=== PATIENT | female | born 1945 | race Caucasian/White ===

== ENCOUNTER 2017-02-26 14:59 | Emergency (ER) | payer OTHER ==
[~2017-02-26] VITALS: Ht 157.5 cm; Wt 36.7 kg
[~2017-02-26 14:59] MED LIST: ALBU.083IS; ALBU.083IS IH; ALBU8HFA2 INH; ALBU90OI; ALBU90OI INH; ALBU90OI61 INH; AMLO5; AMLO5 PO; ATOR10; Azopt10 ML; BEANO PO; BRIM.15SO BOTHEYES; BRIM.15SO RIGHTEYE; CEPH500 PO; CLON.1 PO; CREON DR 6,0001 EACH PO; CRESTOR; Cipro500 MG PO; DEXL60CA3 PO; DIAZ10 PO; DIAZ5; DIAZ5 PO; DICY20 PO; DOXE10 PO; DOXE25 PO; ERGO400 PO; EZET10 PO; FML FORTE 0.25%; HYDACE10B PO; HYDACE5 PO; HYDACE5325 PO; HYDACE7.5; HYDMOR2 PO; IRBE150 PO; MELO7.5 PO; Norco 5-325 Ta1 EACH PO; ONDA4 PO; OXYACE5T PO; POTCHL20ER PO; PROM25 PO; Percocet 5-3251 EACH PO; Prednisone20 MG PO; RISE5; RISE5 PO; ROSU5 PO; RXHYDMOR2 PO; TOCO400 PO; TRAV.004OP BOTHEYES; TRAV.004OP OD
[2017-02-26] MEDS ORDERED: BEANO (16:21)
[2017-02-26] MEDS ORDERED: ONDA4ODT MM (16:21)
[2017-02-26] MEDS ORDERED: CHOL10002 (16:21)
[2017-02-26] MEDS ORDERED: PHISOHEX (16:22)
[2017-02-26] MEDS ORDERED: HIBICLENS120 ML EXT (16:22)
== END 2017-02-26 16:48 | disposition home or self-care (01) ==
LOC: ER 14:59
DX: M25.511 Pain in right shoulder (principal); M25.551 Pain in right hip; M25.561 Pain in right knee; J45.909 Unspecified asthma, uncomplicated; I10 Essential (primary) hypertension; E78.00 Pure hypercholesterolemia, unspecified; Z88.0 Allergy status to penicillin; Z88.2 Allergy status to sulfonamides; Z88.1 Allergy status to other antibiotic agents; Z88.8 Allergy status to other drugs, medicaments and biological substances; Z91.012 Allergy to eggs; Z91.011 Allergy to milk products; Z79.899 Other long term (current) drug therapy; Z87.442 Personal history of urinary calculi; W19.XXXA Unspecified fall, initial encounter; Y92.512 Supermarket, store or market as the place of occurrence of the external cause
CPT/HCPCS: 73030; 73502; 73564; 99283

== ENCOUNTER 2017-05-07 16:40 | Emergency (ER) | payer OTHER ==
[~2017-05-07] VITALS: Ht 160 cm; Wt 37.6 kg
[~2017-05-07 16:40] MED LIST changes: +BEANO; +CHOL10002; +HIBICLENS120 ML EXT; +ONDA4ODT MM; +PHISOHEX
== END 2017-05-07 19:26 | disposition home or self-care (01) ==
LOC: ER 16:40
DX: S93.402A Sprain of unspecified ligament of left ankle, initial encounter (principal); J45.909 Unspecified asthma, uncomplicated; I10 Essential (primary) hypertension; E16.2 Hypoglycemia, unspecified; Z88.0 Allergy status to penicillin; Z88.1 Allergy status to other antibiotic agents; Z88.2 Allergy status to sulfonamides; Z88.6 Allergy status to analgesic agent; Z88.8 Allergy status to other drugs, medicaments and biological substances; Z79.899 Other long term (current) drug therapy; Z98.890 Other specified postprocedural states; W01.10XA Fall on same level from slipping, tripping and stumbling with subsequent striking against unspecified object, initial encounter
CPT/HCPCS: 73610; 99283

== ENCOUNTER 2018-08-25 13:04 | Emergency (ER) | payer OTHER ==
[~2018-08-25] VITALS: Ht 154.9 cm; Wt 40.8 kg
== END 2018-08-25 14:28 | disposition home or self-care (01) ==
LOC: ER 13:04
DX: S93.401A Sprain of unspecified ligament of right ankle, initial encounter (principal); X50.9XXA Other and unspecified overexertion or strenuous movements or postures, initial encounter; J45.909 Unspecified asthma, uncomplicated; I10 Essential (primary) hypertension; E78.5 Hyperlipidemia, unspecified
CPT/HCPCS: 73610; 99284-25

== ENCOUNTER 2019-02-03 18:38 | Emergency (ER) | payer OTHER ==
[~2019-02-03] VITALS: Ht 154.9 cm; Wt 31.8 kg
[2019-02-03 19:11] LABS: BASOPHILS ABSOLUTE AUTO 0.03 K/mm3 (0.00-0.23); BASOPHILS PERCENT AUTO 0 % (0-2); EOSINOPHILS ABSOLUTE AUTO 0.07 K/mm3 (0.00-0.68); EOSINOPHILS PERCENT AUTO 1 % (0-6); Hemoglobin 13.5 g/dL (11.5-16.0); IMMATURE GRAN ABSOLUTE AUTO 0.04 K/mm3 (0.00-0.10); IMMATURE GRAN PERCENT AUTO 0 % (0-1); LYMPHOCYTES ABSOLUTE AUTO 5.09 K/mm3 (0.84-5.20); LYMPHOCYTES PERCENT AUTO 35 % (21-46); MONOCYTES ABSOLUTE AUTO 1.42 K/mm3 (0.16-1.47); MONOCYTES PERCENT AUTO 10 % (4-13); Mean Corpuscular HGB 29.3 pg (26.0-34.0); Mean Corpuscular HGB Conc 31.4 g/dL (31.5-36.5); Mean Corpuscular Volume 93 fL (80-100); Mean Platelet Volume 10.4 fL (9.1-12.4); NEUTROPHILS PERCENT AUTO 54 % (41-73); Platelet Count 504 K/mm3 (150-400); RDW Coefficient Variation 14.3 % (11.7-14.2); RDW Standard Deviation 48.4 fL (35.1-46.3); Red Blood Cell Count 4.61 M/mm3 (3.80-5.20); White Blood Cell Count 14.45 K/mm3 (4.00-11.30)
[2019-02-03 19:27] LABS: Albumin/Globulin Ratio 0.7 (0.8-1.8); Bilirubin, Total 0.5 mg/dL (0.1-1.0); Calcium, Blood 9.6 mg/dL (8.5-10.1); Globulin, Blood 4.5 g/dL (2.2-4.0); Potassium, Blood 3.9 mmol/L (3.5-5.5); Total Protein, Blood 7.5 g/dL (6.4-8.2); Troponin I 0.033 ng/mL (0.000-0.040)
[2019-02-03] MEDS ORDERED: PANT20 PO (22:50)
== END 2019-02-04 00:01 | disposition home or self-care (01) ==
LOC: ER 18:38
PROVIDERS: Emergency Medicine
DX: K29.70 Gastritis, unspecified, without bleeding (principal); K21.9 Gastro-esophageal reflux disease without esophagitis; I10 Essential (primary) hypertension; J45.909 Unspecified asthma, uncomplicated; E78.5 Hyperlipidemia, unspecified; Z88.0 Allergy status to penicillin; Z88.2 Allergy status to sulfonamides; Z88.1 Allergy status to other antibiotic agents; Z88.8 Allergy status to other drugs, medicaments and biological substances; Z88.6 Allergy status to analgesic agent; Z88.5 Allergy status to narcotic agent; Z79.899 Other long term (current) drug therapy; Z79.51 Long term (current) use of inhaled steroids
CPT/HCPCS: 71045; 80053; 83690; 84484; 85025; 93005; 93010; 99284-25

== ENCOUNTER → 2019-03-21 | Outpatient (CLI) | payer OTHER ==
[~2019-03-21] MED LIST changes: +PANT20 PO
== END | disposition home or self-care (01) ==
LOC: LAB 09:00 → LAB SHORT 09:00 → LAB FUT 03-11 13:40
PROVIDERS: Internal Medicine
DX: R79.89 Other specified abnormal findings of blood chemistry (principal)
CPT/HCPCS: 81050

== ENCOUNTER 2020-03-03 17:00 | Inpatient (IN) | payer OTHER ==
[~2020-03-03] VITALS: Ht 160 cm; Wt 35.0 kg
[~2020-03-03 17:00] MED LIST changes: -ALBU90OI61 INH; +Avapro150 MG; +Azopt10 ML RIGHTEYE; -BEANO; -CHOL10002; +OLOPATADINE HCL5 ML BOTHEYES; +RHOPRESSA2.5 ML RIGHTEYE; +Roxicodone5 MG PO
[2020-03-03 17:34] LABS: BASOPHILS ABSOLUTE AUTO 0.02 K/mm3 (0.00-0.23); BASOPHILS PERCENT AUTO 0 % (0-2); EOSINOPHILS ABSOLUTE AUTO 0.05 K/mm3 (0.00-0.68); EOSINOPHILS PERCENT AUTO 0 % (0-6); Hematocrit 43.6 % (33.0-51.0); Hemoglobin 13.8 g/dL (11.5-16.0); IMMATURE GRAN ABSOLUTE AUTO 0.04 K/mm3 (0.00-0.10); IMMATURE GRAN PERCENT AUTO 0 % (0-1); LYMPHOCYTES ABSOLUTE AUTO 4.17 K/mm3 (0.84-5.20); LYMPHOCYTES PERCENT AUTO 31 % (21-46); MONOCYTES ABSOLUTE AUTO 0.93 K/mm3 (0.16-1.47); MONOCYTES PERCENT AUTO 7 % (4-13); Mean Corpuscular HGB 29.9 pg (26.0-34.0); Mean Corpuscular HGB Conc 31.7 g/dL (31.5-36.5); Mean Corpuscular Volume 94 fL (80-100); Mean Platelet Volume 10.2 fL (9.1-12.4); NEUTROPHILS ABSOLUTE AUTO 8.12 K/mm3 (1.96-9.15); NEUTROPHILS PERCENT AUTO 61 % (41-73); Platelet Count 328 K/mm3 (150-400); RDW Coefficient Variation 15.9 % (11.7-14.2); RDW Standard Deviation 54.9 fL (35.1-46.3); Red Blood Cell Count 4.62 M/mm3 (3.80-5.20); White Blood Cell Count 13.33 K/mm3 (4.00-11.30)
[2020-03-03 17:52] LABS: Albumin, Blood 3.3 g/dL (3.4-5.0); Albumin/Globulin Ratio 0.8 (0.8-1.8); Bilirubin, Total 0.3 mg/dL (0.1-1.0); Bun/Creatinine Ratio 22.5 (12.0-20.0); Calcium, Blood 9.5 mg/dL (8.5-10.1); Creatinine, Blood 1.11 mg/dL (0.40-1.00); Globulin, Blood 3.9 g/dL (2.2-4.0); Potassium, Blood 3.3 mmol/L (3.5-5.5); Total Protein, Blood 7.2 g/dL (6.4-8.2)
[2020-03-03] MEDS ORDERED: Felodipine ER2.5 MG PO (19:17)
[2020-03-03] MEDS ORDERED: DEXL60CA3 PO (19:18)
[2020-03-03] MEDS ORDERED: Bentyl10 MG PO (19:18)
[2020-03-03] MEDS ORDERED: HYDACE10B PO (19:20)
[2020-03-03] MEDS ORDERED: VALSARTAN160 MG PO (19:22)
[2020-03-03] MEDS ORDERED: CREON DR 6,0001 EACH PO (19:22)
[2020-03-03] MEDS ORDERED: ALBU90OI61 INH (19:45)
[2020-03-03] MEDS ORDERED: BEANO PO (19:46)
[2020-03-03] MEDS ORDERED: VITAMIN D325 MC3 PO (19:46)
[2020-03-03 20:23] LABS: Source, Urine Catheter
[2020-03-03 20:34] LABS: Appearance, Urine Clear (Clear); Bilirubin, Urine Neg (Neg); Blood, Urine Neg (Neg); Color, Urine Yellow (P-Yellow); Glucose Qualitative, Urine Neg (Neg); Ketones, Urine Neg (Neg); Leukocyte Esterase, Urine Neg (Neg); Nitrite, Urine Neg (Neg); Protein, Urine 2+ (Neg); Specific Gravity, Urine 1.015 (1.003-1.022); Urobilinogen, Urine NORM (Normal)
[2020-03-03 20:42] LABS: Red Blood Cells, Urine Not Seen /hpf (0-2); Squamous Epithelial Cells Rare /hpf (Few); White Blood Cells, Urine 0-2 /hpf (0-5)
[2020-03-03 20:43] LABS: Bacteria Few /hpf
[2020-03-04 04:44] LABS: Very Low Density Lipoprot Chol 27 mg/dL (6-32)
[2020-03-04 04:45] LABS: Anion Gap 7 mmol/L (6-16); Blood Urea Nitrogen 22 mg/dL (8-24); Bun/Creatinine Ratio 19.5 (12.0-20.0); CHOL/HDL RATIO 3.5; CO2, Blood 23 mmol/L (21-32); Chloride, Blood 112 mmol/L (98-108); Cholesterol 273 mg/dL (50-200); Creatinine, Blood 1.13 mg/dL (0.40-1.00); Glomerular Filtration Rate 50 (60-); Glucose, Blood 93 mg/dL (70-99); HDL Cholesterol 79 mg/dL (>39); LDL/HDL RATIO 2.1; Low Density Lipoprotein Chol 167 mg/dL (0-110); Potassium, Blood 4.2 mmol/L (3.5-5.5); Sodium, Blood 142 mmol/L (136-145); Triglycerides 135 mg/dL (30-160)
--- NOTE | 2020-03-04 05:29 | NUR ---
SHIFT SUMMARY ADMITTED AROUND 11PM. ALERT AND ORIENTED - ABLE TO MAKE NEEDS KNOWN. SATS >90% ON ROOM AIR. TELE NSR. 1 PERSON ASSIST TO BATHROOM - USES WALKER NEEDED. BP ELEVATED - HYDRALAZINE GIVEN X1. PAIN X2. HER TOES ARE PRETTY BRUISED AND SCUFFED UP FROM CANS DROPPING ON THEM. PT C/O OF PAIN IN TOES MORESO THAN HER ABDOMEN. NAUSEA MEDS GIVEN X1. VSS. CALL LIGHT WITHIN REACH, BED IN LOWEST POSITION. WILL CONTINUE TO MONITOR.
--- NOTE | 2020-03-04 18:28 | NUR ---
SHIFT SUMMARY: NO ACUTE CHANGES T/OUT SHIFT. PT CONTINUES A&OX4, RESP EVEN AND UNLABORED, AMBULATES TO RESTROOM USING FWW AND SBA. PT DENIES N/V T/OUT SHIFT, DOES C/O PAIN TO BILATERAL TOES THAT SHE SAID SHE DROPPED FROZEN FOOD AND CANNED GOODS ON. PT MEDICATED PER EMAR FOR PAIN. AT THIS TIME PT IS RESTING QUIETLY IN BED WITH TV ON. WILL CONTINUE TO MONITOR AND TREAT ACCORDINGLY UNTIL CHANGE OF SHIFT.
[2020-03-05 04:01] LABS: BASOPHILS ABSOLUTE AUTO 0.03 K/mm3 (0.00-0.23); BASOPHILS PERCENT AUTO 0 % (0-2); EOSINOPHILS ABSOLUTE AUTO 0.08 K/mm3 (0.00-0.68); EOSINOPHILS PERCENT AUTO 1 % (0-6); Hematocrit 39.5 % (33.0-51.0); Hemoglobin 12.7 g/dL (11.5-16.0); IMMATURE GRAN ABSOLUTE AUTO 0.06 K/mm3 (0.00-0.10); IMMATURE GRAN PERCENT AUTO 1 % (0-1); LYMPHOCYTES ABSOLUTE AUTO 3.46 K/mm3 (0.84-5.20); LYMPHOCYTES PERCENT AUTO 42 % (21-46); MONOCYTES ABSOLUTE AUTO 0.75 K/mm3 (0.16-1.47); MONOCYTES PERCENT AUTO 9 % (4-13); Mean Corpuscular HGB Conc 32.2 g/dL (31.5-36.5); Mean Corpuscular Volume 90 fL (80-100); NEUTROPHILS PERCENT AUTO 47 % (41-73); RDW Coefficient Variation 16.1 % (11.7-14.2); RDW Standard Deviation 53.8 fL (35.1-46.3); Red Blood Cell Count 4.38 M/mm3 (3.80-5.20); White Blood Cell Count 8.28 K/mm3 (4.00-11.30)
[2020-03-05 04:03] LABS: Mean Platelet Volume 10.4 fL (9.1-12.4); Platelet Count 114 K/mm3 (150-400)
[2020-03-05 04:15] LABS: Albumin, Blood 2.6 g/dL (3.4-5.0); Albumin/Globulin Ratio 0.7 (0.8-1.8); Bilirubin, Total 0.4 mg/dL (0.1-1.0); Bun/Creatinine Ratio 14.7 (12.0-20.0); Calcium, Blood 8.4 mg/dL (8.5-10.1); Creatinine, Blood 1.16 mg/dL (0.40-1.00); Globulin, Blood 3.6 g/dL (2.2-4.0); Potassium, Blood 3.9 mmol/L (3.5-5.5); Total Protein, Blood 6.2 g/dL (6.4-8.2)
--- NOTE | 2020-03-05 05:05 | NUR ---
SHIFT SUMMARY PATIENT IS A&OX4, CALLS APPROPRIATELY. PATIENT ABLE TO REPOSITON SELF IN BED, 1 PERSON ASSIST TO BATHROOM. MEDICATED FOR TOE PAIN, SEE EMAR. MEDICATED FOR HIGH BP, SEE EMAR, VSS OTHERWISE. 02 SATS >95% ON RA. CALL LIGHT IN REACH.
--- NOTE | 2020-03-05 12:01 | NUR ---
Spiritual care visit conducted. Patient explains about her medical history, her current issues and the plan of care moving forward. Patient then shares about the tragic events and situations she has gone through in life. I highlight her ability to overcome and continue to have a joyful demeanor. 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 Her art work is also a coping strategy for her. Patient talks about her Rastafarian sole and how she finds strength in her prayers. I bring her a Rastafarian prayer and devotional book and later contact Father Maximus to request that he visit patient. I provide therapeutic listening and prayer. Patient responds well and shows signs of an elevated mood. I will continue to remain available to patient and family.
--- NOTE | 2020-03-05 16:01 | NUR ---
NO ACUTE CHANGES T/OUT DAY SHIFT. PT CONTINUES A&OX4, RESP EVEN AND UNLABORED, SR ON MONITOR. DR CHAN IN TO SEE PT TODAY, ORDERED CONSULTATION WITH DR SCHWARTZ BEFORE PURSUING SURGERY, CONSULTATION HAS BEEN CALLED IN. PT CONTINUES INDEPENDENT IN ROOM, SBA WITH FWW TO RESTROOM. PALLIATIVE CARE IS AWARE OF CONSULTATION ORDER. REPORT HAS BEEN GIVEN TO MINDY JOSHI IN MEDICAL DEPT TO RECEIVE PT.
--- NOTE | 2020-03-06 05:08 | NUR ---
FREIGHT CAR REPAIRER SUMMARY A/OX4, PLEASANT AND COOPERATIVE WITH CARE. C/O PAIN IN BILATERAL FEET, MEDICATED PER EMAR. UP TO BATHROOM WITH 1 ASSIST AND FWW. CURRENTLY RUNNING NS AT 75. NPO AT MIDNIGHT FOR PROCEDURE WITH DR. SCHWARTZ THIS AM. NO ACUTE CHANGES AT THIS TIME. BED IN LOWEST POSITION WITH CALL LIGHT IN REACH. WILL CONTINUE TO MONITOR AND REPORT TO ONCOMING RN.
[2020-03-06 10:15] LABS: International Normalized Ratio 1.04; Prothrombin Time Results 11.1 Sec (9.7-11.5)
[2020-03-06 10:24] LABS: Influenza A, PCR Negative (NEGATIVE); Influenza B, PCR Negative (NEGATIVE); Resp Syncytial Virus, PCR Negative (NEGATIVE); SARS-Cov-2 (COVID-19) PCR, MMC Negative (NEGATIVE)
--- NOTE | 2020-03-06 13:47 | NUR ---
Met pt in bed relaxed she reports doing much better ,pt. is out of P.C.U and is now medical floor encouraged pt. and offered prayers.
--- NOTE | 2020-03-07 04:49 | NUR ---
MARINE EQUIPMENT PRESERVATION INSPECTOR SUMMARY PT A&OX4, ABLE TO MAKE NEEDS KNOWN, PLEASANT AND COOPERATIVE TO CARE. PT MEDICATED FOR ROBB FOOT PAIN PER APR. PT UP TO BATHROOM WITH 1P ASSIST WITH FWW. NO C/O CP, SOB, OR N&V. PT NPO SINCE MIDNIGHT D/T SCHED PROCEDURE TODAY. PT CALM AND RESTED IN BED T/O SHIFT. BED AT LOWEST POSITION, CALL LIGHT WITHIN REACH.
--- NOTE | 2020-03-07 09:46 | NUR ---
PT ARRIVED TO ICU 2 FROM SYSTEMS SOFTWARE ENGINEER AT 0830. PT HAD REVASCULARIZATION TO L FOOT. R GROIN ACCESS SITE WITH FAILED ANGIOSEAL. UPON ARRIVAL TO ROOM THERE WAS BLOOD SEEPING OUT OF DRESSING. SYSTEMS SOFTWARE ENGINEER STAFF HELD PRESSURE FOR ANOTHER 10MINS. HORTENCIA DRESSING WAS PLACED. ONLY SMALL AMOUNT OF BLOOD ON DRESSING NOW. THERE IS GREEN/BLUE BRUISING AROUND SITE FROM PRESSURE BEING HELD. PT IS LAYING FLAT WITHOUT FLEXION OF NECK OR LEGS. FENTANYL WAS GIVEN WHEN PT INITIALLY ARRIVED DUE TO PAIN IN TOES BILAT. R FOOT HAS BLACK AND YELLOW DISCOLRATION TO 2ND TOE. 3RD TOE HAS PURPLE DISCOLORATION. ON L FOOT BIG TOE IS PURPLE, 3RD TOE IS BLACK ON UNDERSIDE, AND 4TH TOE IS PURPLE. SEE PHOTOS TAKEN POST SYSTEMS SOFTWARE ENGINEER. PULSES PALPABLE TO BILAT DORSALIS AND POSTERIOR TIBIALS. HYDRALAZINE GIVEN FOR SBP IN 180'S WITH GOOD RESULTS.
--- NOTE | 2020-03-07 13:34 | NUR ---
PT TAKEN TO SURGERY FOR TOE AMPUTATIONS. PATTERN FINISHER X2 CAME AND GOT PT WITH MCKENNA. R FEMORAL ACCESS SITE IS STABLE WITH HORTENCIA DRESSING INTACT. NO NEW BLEEDING FROM SITE. PT WILL BE SURGICAL STATUS AFTER SURGERY. NO SIGN OF DISTRESS.
--- NOTE | 2020-03-07 13:50 | NUR ---
Tariq Paws warming gown applied. History, Chart, Medications and Allergies reviewed before start of procedure.Lungs clear T/O to Auscultation. Patient confirms NPO status and agrees with scheduled surgery. ALL BELONINGS BROUGHT WITH PATIENT FROM ICU 2 DUE TO PATIENT BECOMING SURGICAL FLOOR STATUS. PACU AWARE. RIGHT GROIN SITE WITH TEGADERM IN PLACE. SITE WITHOUT BLEEDING OR SWELLING. NO PAS DUE TO BILAT TOE AMPUTATIONS. REPORT FROM JOANN GUILLEN ICU.
--- NOTE | 2020-03-07 15:03 | NUR ---
ARRIVED INTO PACU RECIEVED REPORT VSS. ORAL AIRWAY IN PLACE SAT 98% ROOM AIR
--- NOTE | 2020-03-07 15:47 | NUR ---
ARRIVAL TO UNIT ALERT & ORIENTED BUT DROWSY. DENIES PAIN. VSS. KIMBERLYN WRAP ON BILAT FEET; CDI. DENIES NEEDS AND JUST WISHES TO SLEEP.
--- NOTE | 2020-03-08 06:15 | NUR ---
SHIFT SUMMARY POD#1. AAOX4. PT REPORTING DISCOMFORT AT TOLERABLE LEVEL T/O NIGHT, DENIES NEED FOR PAIN/NAUSEA MEDS. DRESSINGS TO BLE C/D/I. PT REPORTING HX NEUROPATHY BLE, NO ACUTE CHANGE FROM BASELINE. SIPS FLUIDS T/O NIGHT, IVF PER BASELINE. GOOD URINE OUTPUT. NO ACUTE CHANGES OVER NIGHT. CURRENTLY PT RESTING IN BED WITH CALL LIGHT IN REACH.
[2020-03-08] MEDS ORDERED: CLIN150 PO (12:46)
--- NOTE | 2020-03-08 14:00 | NUR ---
discharge PT LEFT VIA WHEELCHAIR AT APPROX 1345. PT LEFT WITH FRIEND WHO WILL BE STAYING WITH HER HELPING TO PROVIDE CARE. DISCHARGE INSTRUCTIONS GONE OVER WITH PATIENT AND FRIEND. PT STATES SHE HAS A WALKER AT HOME. EDUCATED PATIENT ON IMPORTANCE OF USING WALKER AND USING HER BOOTS WHILE AMBULATING AND MOVING AROUND THE HOUSE. PT WAS ABLE TO WALK MULTIPLE TIMES DURING SHIFT WITH NO SIGNS OF WEAKNESS, SHE DENIED PAIN DURING SHIFT. TOLERATED PO WELL. PT HOME MED SENT HOME WITH HER. IV REMOVED.
== END 2020-03-08 13:44 | disposition home or self-care (01) | DRG 252 ==
LOC: ER 17:00 → SURS 22:23 → PCU 22:23 → MEDS 22:23 → PCU 22:30 → MEDS 03-05 16:27 → ICUE 03-07 08:16 → SURS 03-07 14:30
PROVIDERS: Internal Medicine; Physician Assistant; Podiatrist Foot & Ankle Surgery; Radiology Diagnostic Radiology; ADMIT Internal Medicine
PROC: 0Y6U0Z1 Detachment at Left 3rd Toe, High, Open Approach (ICD-10-PCS; 2020-03-07)
PROC: 0Y6R0Z1 Detachment at Right 2nd Toe, High, Open Approach (ICD-10-PCS; principal; 2020-03-07 13:30)
PROC: 047Q3ZZ Dilation of Left Anterior Tibial Artery, Percutaneous Approach (ICD-10-PCS; 2020-03-08)
PROC: B41DYZZ Fluoroscopy of Aorta and Bilateral Lower Extremity Arteries using Other Contrast (ICD-10-PCS; 2020-03-08)
DX: I73.89 Other specified peripheral vascular diseases (principal); K85.90 Acute pancreatitis without necrosis or infection, unspecified; R65.10 Systemic inflammatory response syndrome (SIRS) of non-infectious origin without acute organ dysfunction; I96 Gangrene, not elsewhere classified; M86.171 Other acute osteomyelitis, right ankle and foot; S90.425A Blister (nonthermal), left lesser toe(s), initial encounter; I10 Essential (primary) hypertension; E78.5 Hyperlipidemia, unspecified; E87.6 Hypokalemia; J45.909 Unspecified asthma, uncomplicated; I77.89 Other specified disorders of arteries and arterioles
CPT/HCPCS: 0241U; 36415; 37228; 73630; 74176; 75625; 75716; 75774; 80048; 80053; 80061; 81001; 82947; 83690; 84484; 85025; 85610; 88305; 88311; 93005; 93010; 94760; 96361; 96374; 99152; 99153; 99285-25; A9270; C1725; C1760; C1769; C1887; C1894; J0360; J1100; J1644; J2250; J2370; J2405; J2704; J3010; J7030; J7050; J7120; Q9967

== ENCOUNTER 2021-05-10 18:04 | Emergency (ER) | payer OTHER ==
[~2021-05-10] VITALS: Ht 157.5 cm; Wt 32.1 kg
[~2021-05-10 18:04] MED LIST changes: +ALBU90OI61 INH; +Bentyl10 MG PO; +CLIN150 PO; +Felodipine ER2.5 MG PO; +LIDO700A20 TOP; +VALSARTAN160 MG PO; +VITAMIN D325 MC3 PO
[2021-05-10] MEDS ORDERED: Voltaren100 GM TOP (22:47)
== END 2021-05-10 23:15 | disposition home or self-care (01) ==
LOC: ER 18:04
DX: M79.671 Pain in right foot (principal); J45.909 Unspecified asthma, uncomplicated; I10 Essential (primary) hypertension; E78.00 Pure hypercholesterolemia, unspecified; Z89.421 Acquired absence of other right toe(s); Z88.0 Allergy status to penicillin; Z88.2 Allergy status to sulfonamides; Z88.1 Allergy status to other antibiotic agents; Z88.8 Allergy status to other drugs, medicaments and biological substances; Z88.6 Allergy status to analgesic agent; Z79.899 Other long term (current) drug therapy
CPT/HCPCS: 93926; 99284-25

== ENCOUNTER 2021-05-20 11:54 | Inpatient (IN) | payer OTHER ==
[~2021-05-20] VITALS: Ht 152.4 cm; Wt 26.9 kg
[~2021-05-20 11:54] MED LIST changes: +CLON.2 PO; +Voltaren100 GM TOP
[2021-05-20 15:08] LABS: BASOPHILS ABSOLUTE AUTO 0.02 K/mm3 (0.00-0.23); BASOPHILS PERCENT AUTO 0 % (0-2); EOSINOPHILS ABSOLUTE AUTO 0.01 K/mm3 (0.00-0.68); EOSINOPHILS PERCENT AUTO 0 % (0-6); Hematocrit 38.6 % (33.0-51.0); Hemoglobin 12.3 g/dL (11.5-16.0); IMMATURE GRAN ABSOLUTE AUTO 0.04 K/mm3 (0.00-0.10); IMMATURE GRAN PERCENT AUTO 0 % (0-1); LYMPHOCYTES ABSOLUTE AUTO 1.18 K/mm3 (0.84-5.20); LYMPHOCYTES PERCENT AUTO 11 % (21-46); MONOCYTES ABSOLUTE AUTO 0.74 K/mm3 (0.16-1.47); MONOCYTES PERCENT AUTO 7 % (4-13); Mean Corpuscular HGB 29.9 pg (26.0-34.0); Mean Corpuscular HGB Conc 31.9 g/dL (31.5-36.5); Mean Corpuscular Volume 94 fL (80-100); NEUTROPHILS ABSOLUTE AUTO 8.53 K/mm3 (1.96-9.15); NEUTROPHILS PERCENT AUTO 81 % (41-73); Platelet Count 97 K/mm3 (150-400); RDW Coefficient Variation 15.1 % (11.7-14.2); RDW Standard Deviation 51.8 fL (35.1-46.3); Red Blood Cell Count 4.11 M/mm3 (3.80-5.20); White Blood Cell Count 10.52 K/mm3 (4.00-11.30)
[2021-05-20 15:25] LABS: Albumin, Blood 3.4 g/dL (3.4-5.0); Albumin/Globulin Ratio 0.8 (0.8-1.8); Bilirubin, Total 1.2 mg/dL (0.1-1.0); Bun/Creatinine Ratio 37.9 (12.0-20.0); Calcium, Blood 9.8 mg/dL (8.5-10.1); Creatinine, Blood 1.69 mg/dL (0.40-1.00); Potassium, Blood 4.4 mmol/L (3.5-5.5); Total Protein, Blood 7.4 g/dL (6.4-8.2)
[2021-05-20 17:53] LABS: Base Excess Venous -3.8 mmol/L; PCO2 Venous 29.9 mmHg (38-42); PO2 Venous 120 mmHg (38-42); pH Blood Venous 7.44 (7.34-7.37)
--- NOTE | 2021-05-20 19:32 | NUR ---
PATIENT ARRIVAL: PATIENT ARRIVAL TO PCU DURING SHIFT CHANGE. THIS RN TRANSFERRED PATIENT OVER TO PCU BED. VITAL SIGNS OBTAINED. TELE SHOWING AFIB WITH HR 130-140'S. CARDIZEM DRIP INFUSING AT 5MG/HR. ATTENDS CHANGE, PATIENT INCONTINENT OF URINE. VERY FRAGILE AND COOL TO THE TOUCH. WARM BLANKETS PROVIDED. TOES BLACK/BLUE. PICTURES TAKEN. FINGERS SLIGHTLY BLUE IN COLOR HARD TO OBTAIN PULSE OX. READING 91% AT TIME OF VITALS. PATIENT DENIES PAINS. UPON ENTERING VITAL SIGNS AND STARTING ADMIT, MARKET RISK MANAGER RN IN ROOM FOR REPORT. REPORT HANDED OFF TO MARTÍNEZ GUILLEN.
[2021-05-20 19:41] LABS: Anti-Xa UFH, PHA Monitoring <0.10 IU/mL; International Normalized Ratio 0.95
--- NOTE | 2021-05-20 22:40 | NUR ---
ASSUMED PT CARE AT 1900, PT JUST ARRIVED ON UNIT. PT SITTING IN BED, ORIENTED TO SELF. HR OBSERVED TO BE IN A-FIB WITH RVR ON TELEMETRY. HR AND BP ELEVATED, SEE SAVED VITAL SIGNS IN CHART. PT PULSE OXEMETRY DIFFICULT TO OBTAIN DUE TO POOR VASCULARIZATION, FINGER TIPS BLUE TINGED. PT DOES NOT APPEAR TO BE SOB OR HAVE ANY AIR HUNGER, NO COMPLAINTS OF DIFFICUTLY BREATHING. LIPS PINK. DILTIAZEM DRIP RUNNING AT 5 MG/HR AT SHIFT CHANGE. RATE INCREASED PER PROTOCOL DUE TO LACK OF IMPROVEMENT OF HR. MAXIMUM RATE REACHED, HOSPITALIST DATABASE SOFTWARE TECHNICIAN INFORMED BY JARON CHARGE NURSE. PT RATE TRANDING DOWNWARD INTO 80'S BEFORED DILTTIAZEM DRIP NEEDING TO BE INCREASED FURHTER, PER DOCTORS INSTRUCTIONS. PT HR CONVERTED TO SR AT APPROXIMATELY 2119. DILTIZAEM DRIP STOPPED. PT HR HAS REMAINED IN SR UNTIL NOW. HEPRIN DRIP INFUSING ORDERED.
[2021-05-21 02:11] LABS: BASOPHILS ABSOLUTE AUTO 0.01 K/mm3 (0.00-0.23); BASOPHILS PERCENT AUTO 0 % (0-2); EOSINOPHILS ABSOLUTE AUTO 0.02 K/mm3 (0.00-0.68); EOSINOPHILS PERCENT AUTO 0 % (0-6); Hematocrit 35.2 % (33.0-51.0); Hemoglobin 11.2 g/dL (11.5-16.0); IMMATURE GRAN ABSOLUTE AUTO 0.04 K/mm3 (0.00-0.10); IMMATURE GRAN PERCENT AUTO 0 % (0-1); LYMPHOCYTES ABSOLUTE AUTO 1.24 K/mm3 (0.84-5.20); LYMPHOCYTES PERCENT AUTO 12 % (21-46); MONOCYTES ABSOLUTE AUTO 0.53 K/mm3 (0.16-1.47); MONOCYTES PERCENT AUTO 5 % (4-13); Mean Corpuscular HGB 30.4 pg (26.0-34.0); Mean Corpuscular HGB Conc 31.8 g/dL (31.5-36.5); Mean Corpuscular Volume 95 fL (80-100); Mean Platelet Volume 11.7 fL (9.1-12.4); NEUTROPHILS ABSOLUTE AUTO 8.25 K/mm3 (1.96-9.15); NEUTROPHILS PERCENT AUTO 82 % (41-73); Platelet Count 102 K/mm3 (150-400); RDW Coefficient Variation 15.7 % (11.7-14.2); RDW Standard Deviation 54.4 fL (35.1-46.3); Red Blood Cell Count 3.69 M/mm3 (3.80-5.20); White Blood Cell Count 10.09 K/mm3 (4.00-11.30)
[2021-05-21 02:31] LABS: Albumin/Globulin Ratio 0.8 (0.8-1.8); Bilirubin, Total 0.6 mg/dL (0.1-1.0); Bun/Creatinine Ratio 37.7 (12.0-20.0); Calcium, Blood 8.3 mg/dL (8.5-10.1); Creatinine, Blood 1.75 mg/dL (0.40-1.00); Globulin, Blood 3.9 g/dL (2.2-4.0); Magnesium, Blood 2.1 mg/dL (1.6-2.4); Potassium, Blood 3.9 mmol/L (3.5-5.5); Total Protein, Blood 6.9 g/dL (6.4-8.2)
--- NOTE | 2021-05-21 04:43 | NUR ---
PT HR HAS REMAINED IN SR IN 70-80'S. FINGERS AND TOES ARE NOW PALE PINK EXCCEPT 4TH TOE ON RIGHT FOOT IS STILL PURPLE/BLACK. O2 SATS HIGH 90'S ON RA. BP HAS REMAINED STABLE. SAFETY MEASURES IN PLACE.
--- NOTE | 2021-05-21 08:00 | NUR ---
INITIAL ASSESSMENT: Patient is resting with her eyes closed, she awakens easily with verbal stimuli. She is oriented to self, place, and following directions. She thinks it is May 18. She reports 8/10 BLE pain, she states she normally takes [place] at home for pain. HRR, SR in the 70s-80s. LS Coarse in the upper lobes, biox is 100% on RA. BT+. Patient has history of Raynauds. On her left hand her fingers at the tips are dusky with a 4 sec cap refill. Both feet the toes are a dark purple with very slow cap refill. On the bottom of the second toe on the right foot it is black. Patient denies N/T. VSS. AM meds given with a sip of water. Patient repositioned in bed so she can eat breakfast. She denies other needs at this time. WCTM.
--- NOTE | 2021-05-21 12:00 | NUR ---
UPDATE: ASSESSMENT UNCHANGED. PT HAS BEEN ABLE TO GET OOB WITH THERAPY. VSS. THE PATIENT IS RESTING COMFORTABLY AT THIS TIME. SHE DENIES NEEDS AT THIS TIME. CALL ENA IN REACH, SAV.
--- NOTE | 2021-05-21 15:15 | NUR ---
Call to Dr. Hunt regarding pt's pain. Pain medication requested; Dr. Hunt said that she will do the home medication reconciliation and put new orders in.
--- NOTE | 2021-05-21 16:30 | NUR ---
UPDATE: ASSESSMENT UNCHANGED. VSS. PT IS C/O PAIN IN HER BACK AND LEGS, CALL PLACED TO DR. CHEATHAM BY CORNELIO GUILLEN-SEE NEW ORDERS. PT WAS MEDICATED WITH NORCO. PATIENT DENIES OTHER NEEDS AT THIS TIME. CALL LIGHT IN REACH, WILL CONTINUE TO MONITOR.
--- NOTE | 2021-05-21 18:00 | NUR ---
Update: This RN went in to start a powerglide on the patient due to difficulty with labs draws. I noticed the patient was having difficulty breathing, she was tachypnec with a respiratory rate of 45. She was pale and diaphoretic. I noticed some new mottling to her knees and the back of her thighs. Her lips has a purplish hue to them. This RN was not able to get a good oxygen saturation on the patient due to her Raynauds/poor circulation. I was getting and intermediate reading of her oxygen saturations it was down into the low 80s, pt was placed on 4l of oxygen in her mouth. A call was placed to Dr. Hunt to see if she can come to see the patient. Pt is hypertensive 170s/101. PTs LS now with new crackles and exp wheezing. Pt appears more lethargic and is c/o abd pain. This RN was able to get a powerglide placed and stat labs sent. Tova is at the bedside to see the patient-see new orders. RT at bedside to perform stat ABG. Neighbor at the bedside, update given with patient consent. Neighbor states her and her sister have been trying to get POA for the patient. Patient remains her own decision maker and confirms full code when asked.
[2021-05-21 18:35] LABS: PCO2 Arterial 42.2 mmHg (35-45); PO2 Arterial 50.3 mmHg (80-100)
[2021-05-21 18:50] LABS: Hematocrit 35.1 % (33.0-51.0); Mean Corpuscular HGB 30.2 pg (26.0-34.0); Mean Corpuscular HGB Conc 31.3 g/dL (31.5-36.5); Mean Corpuscular Volume 96 fL (80-100); Platelet Count 108 K/mm3 (150-400); RDW Coefficient Variation 15.9 % (11.7-14.2); RDW Standard Deviation 57.1 fL (35.1-46.3); Red Blood Cell Count 3.64 M/mm3 (3.80-5.20); White Blood Cell Count 15.31 K/mm3 (4.00-11.30)
--- NOTE | 2021-05-21 19:00 | NUR ---
Update: ICU transfer orders were placed. The patient was placed on C-Pap prior to transfer. See chart for all stat labs. Pt was transferred to ICU 07, Report given to Roxanne HERRERA RN. Dr. Latricia ROSE was at the bedside-he will give an update to Dr. Ayala who has seen this patient in the past.
[2021-05-21 19:16] LABS: Albumin, Blood 2.7 g/dL (3.4-5.0); Anion Gap 10 mmol/L (6-16); Blood Urea Nitrogen 63 mg/dL (8-24); Bun/Creatinine Ratio 37.5 (12.0-20.0); CO2, Blood 17 mmol/L (21-32); Calcium, Blood 8.3 mg/dL (8.5-10.1); Chloride, Blood 115 mmol/L (98-108); Creatinine, Blood 1.68 mg/dL (0.40-1.00); Glomerular Filtration Rate 29 (60-); Glucose, Blood 293 mg/dL (70-99); Phosphorus, Blood 4.6 mg/dL (2.5-4.9); Potassium, Blood 4.9 mmol/L (3.5-5.5); Sodium, Blood 142 mmol/L (136-145)
--- NOTE | 2021-05-21 19:33 | NUR ---
ARRIVAL TO ICU PT TRANSFERRED FROM PCU AT THIS TIME. BEDSIDE REPORT RECEIVED FROM ROLANDO GUILLEN. PT ON CPAP 01/23. HEPARIN INFUSING AT 19UNITS/KG/HR WITH WEIGHT OF 27KG. PT WAKENS TO VERBAL STIMULI AND ANSWERS QUESTIONS. SHE IS HYPERTENSIVE AT THIS TIME. SEE SHIFT ASSESSMENT.
--- NOTE | 2021-05-21 20:30 | NUR ---
PROVIDER VISIT DR SCHWARTZ AT BEDSIDE FOR EVAL. POST-TIBIAL PULSES AUDIBLE WITH DOPPLER. VERY FAINT PEDAL PULSES WITH DOPPLER. TOES ARE DUSKY, COOL TO TOUCH. PT HAS SENSATION IN BOTH FEET AND TOES. C/O DISCOMFORT IN TOES. PLAN FOR DR SCHWARTZ TO TAKE PT TOMORROW AFTERNOON FOR PROCEDURE.
[2021-05-21 21:24] LABS: Source, Urine Foley catheter
[2021-05-21 21:31] LABS: Bilirubin, Urine Neg (Neg); Blood, Urine 4+ (Neg); Glucose Qualitative, Urine 2+ (Neg); Ketones, Urine Neg (Neg); Leukocyte Esterase, Urine Neg (Neg); Nitrite, Urine Neg (Neg); Protein, Urine 3+ (Neg); Specific Gravity, Urine 1.025 (1.003-1.022); Urobilinogen, Urine NORM (Normal)
[2021-05-21 21:46] LABS: Appearance, Urine Hazy (Clear); Color, Urine Yellow (P-Yellow)
[2021-05-21 21:47] LABS: Amorphous Mod (0-Heavy); Bacteria Few /hpf; Mucus Light (0-Heavy); Squamous Epithelial Cells Few /hpf (Few); White Blood Cells, Urine Rare /hpf (0-5)
--- NOTE | 2021-05-22 02:49 | NUR ---
UPDATE- HYPERTENSION PT REMAINS HYPERTENSIVE DESPITE RECEIVING ORDERED NIGHTTIME MEDS. CALLED DR THOMAS AND RECEIVED ORDER FOR HYDRALAZINE.
[2021-05-22 04:45] LABS: Hematocrit 31.8 % (33.0-51.0); Hemoglobin 10.3 g/dL (11.5-16.0); Mean Corpuscular HGB 30.6 pg (26.0-34.0); Mean Corpuscular HGB Conc 32.4 g/dL (31.5-36.5); Mean Corpuscular Volume 94 fL (80-100); NRBC ABSOLUTE 0.02 K/mm3 (0.00-0.02); NRBC Auto 0.1 /100 WBC (0.0-0.2); Platelet Count 113 K/mm3 (150-400); RDW Coefficient Variation 15.9 % (11.7-14.2); RDW Standard Deviation 54.7 fL (35.1-46.3); Red Blood Cell Count 3.37 M/mm3 (3.80-5.20); White Blood Cell Count 14.82 K/mm3 (4.00-11.30)
--- NOTE | 2021-05-22 05:33 | NUR ---
SHIFT SUMMARY PT RECEIVING HEPARIN AT 19UNITS/KG/HR WITH A SET WEIGHT OF 27KG. SHE WAS ON BIPAP UNTIL ABOUT 0400. SHE REQUESTED TO TAKE IT OFF DUE TO DISCOMFORT. PLACED ON 4L NC WITH SPO2 >97%. SHE HAS A TEMP URBAN DRAINING CLEAR/YELLOW URINE WITH SHIFT OUTPUT OF 650ML. PT HAS SLEPT THROUGH MOST OF NIGHT BUT WAKENS TO VERBAL STIMULI. THIS AM SHE IS MUCH MORE TALKATIVE. SHE IS COOPERATIVE WITH CARE AND PARTICIPATES WHEN ABLE. SHE IS VERY FRAIL AND WEAK BUT ASSISTS WITH REPOSITIONING. BRUISE PRESENT ON L JAW/NECK FROM PREVIOUS FALL AT HOME. TOES STILL REMAIN PURPLE/BLUE. PLAN TO GO TO COLOR CONTROL SUPERVISOR THIS AFTERNOON WITH DR SCHWARTZ. VSS AT THIS TIME. WILL REPORT TO ONCOMING RN.
[2021-05-22 05:47] LABS: Albumin, Blood 2.6 g/dL (3.4-5.0); Anion Gap 8 mmol/L (6-16); Blood Urea Nitrogen 63 mg/dL (8-24); Bun/Creatinine Ratio 38.4 (12.0-20.0); CO2, Blood 21 mmol/L (21-32); Calcium, Blood 8.1 mg/dL (8.5-10.1); Chloride, Blood 116 mmol/L (98-108); Creatinine, Blood 1.64 mg/dL (0.40-1.00); Glomerular Filtration Rate 30 (60-); Glucose, Blood 127 mg/dL (70-99); Phosphorus, Blood 3.9 mg/dL (2.5-4.9); Potassium, Blood 3.7 mmol/L (3.5-5.5); Sodium, Blood 145 mmol/L (136-145)
--- NOTE | 2021-05-22 10:01 | NUR ---
DR CHAPARRITA ACOSTA, REPORTED CHANGE IN HGB AND HCT IN THE LAST 4 DAYS PER PAHRMACY, HEPARIN GTT STILL INFUSING, PATIENT NPO, WAITING FOR ETCHER ENAMELING PROCEDURE. FAMILY FRIEND CALLED "CELESTE" PALLIATIVE CARE AND CASE MANAGEMENT CONTACTED FOR CONTINUED CARE PLANNING, SAV
--- NOTE | 2021-05-22 12:28 | NUR ---
REPORTED TO DR CHEATHAM AT 1205, PATIENT WENT INTO AFIB AT 1107 TODAY AND IS NOT CHANGING OR IMPROVING. CALLED SENIOR INFRASTRUCTURE ENGINEER, NO ETA FOR SENIOR INFRASTRUCTURE ENGINEER TO TAKE ASUNCION CAPUTO FRIEDN AT BEDSIDE
--- NOTE | 2021-05-22 13:49 | NUR ---
Spiritual Care visit... Pt. is awake with a friend visiting. Friend quickly excused herself. Pt. had displayed evidence of anxiety as her HR was elevated. Through theraputic listening pt. displayed evidence of confusion and an ainability to maintain a train of thought. Pt. is pleasant. Prayed with Pt. Pt. verbalized gratitude for the spiritual care visit.
--- NOTE | 2021-05-22 14:13 | NUR ---
Spiritual Care - "Things We Care to Know" Pt. agree to respond to "Things We Care to KNow" survey. To be posted in her room.
--- NOTE | 2021-05-22 14:51 | NUR ---
[address] CHEATHAM HEART RATE AFIB 120-160, EXTRA DOSE OF LOPRESSOR TO BE GIVEN
--- NOTE | 2021-05-22 15:39 | NUR ---
DR HERNANDEZ ROUNDED, CONSENT SIGNED, LEFT A MESSAGE WITH CASE MANAGEMENT AND FRIEND CELESTE, FRIEND DOMINICK AT BEDSIDE
--- NOTE | 2021-05-22 16:01 | NUR ---
PATIENT TO PET CARETAKER NOW, FRIEND DOMINICK AT BEDSIDE
--- NOTE | 2021-05-22 19:16 | NUR ---
MAKES NEEDS KNOWN, PLEASANT CONFUSED AT TIMES, SPEECH CLEAR BUT DOES BECOME GARBLED TA TIME, CALL LIGHT WITH IN REACH, DENEIS PAIN. DIMISHED LUNGS, 4L O2 NC WHILE AWAKE, BIPAP AT NIGHT, SATS 96%, TELE AFIB, MEDICATED X3, REPORTED TO DR CHEATHAM, AFIB AND HEART RATE 120-160S, TEMP URBAN IN PLACE, TO GRAVITY CLEAR YELLOW URINE. REPOSITIONED REGUALRLY, HEAPRIN GTT STOP. CATH PROCEDURE NOT DONE TODAY DUE TO PATIENTS CREATINTE BUN AND GFR PER DR SCHWARTZ. WILL RELAY TO PM RN, WCTM
--- NOTE | 2021-05-22 19:59 | NUR ---
SPOKE TO DR NG ABOUT PT HEART RATE AND RYHTHM AND COAGULATION NEEDS. MD WILL REVIEW PT CHART AND PLACE ORDERS APPROPRIATE.
--- NOTE | 2021-05-22 22:03 | NUR ---
PT HAS CONVERTED TO SINUS RHYTHM IN THE 'S.
[2021-05-23 04:50] LABS: Hematocrit 31.2 % (33.0-51.0); Hemoglobin 9.8 g/dL (11.5-16.0); Mean Corpuscular HGB 30.3 pg (26.0-34.0); Mean Corpuscular HGB Conc 31.4 g/dL (31.5-36.5); Mean Corpuscular Volume 97 fL (80-100); Mean Platelet Volume 12.9 fL (9.1-12.4); NRBC ABSOLUTE 0.05 K/mm3 (0.00-0.02); NRBC Auto 0.4 /100 WBC (0.0-0.2); Platelet Count 201 K/mm3 (150-400); RDW Coefficient Variation 16.7 % (11.7-14.2); RDW Standard Deviation 57.8 fL (35.1-46.3); Red Blood Cell Count 3.23 M/mm3 (3.80-5.20); White Blood Cell Count 11.26 K/mm3 (4.00-11.30)
[2021-05-23 06:07] LABS: Albumin, Blood 2.7 g/dL (3.4-5.0); Anion Gap 8 mmol/L (6-16); Blood Urea Nitrogen 59 mg/dL (8-24); Bun/Creatinine Ratio 33.9 (12.0-20.0); CO2, Blood 25 mmol/L (21-32); Calcium, Blood 8.8 mg/dL (8.5-10.1); Chloride, Blood 111 mmol/L (98-108); Creatinine, Blood 1.74 mg/dL (0.40-1.00); Glomerular Filtration Rate 28 (60-); Glucose, Blood 117 mg/dL (70-99); Phosphorus, Blood 3.9 mg/dL (2.5-4.9); Potassium, Blood 3.4 mmol/L (3.5-5.5); Sodium, Blood 144 mmol/L (136-145)
--- NOTE | 2021-05-23 14:01 | NUR ---
APS UPDATED AT 0943, DR CHEATHAM ROUNDED AT 1133, PT AND OT HAVE WORKED WITH PATIENT, PATIENT OOB IN CHAIR, HAD A COGNITIVE SCREEN DONE SCORED , SOCAIL SERVICE ON CASE FOR HOME CARE/ REHAB/ SNF PLACEMENT, TELE 71 NSR, METOPROLOL INCREASED TO Q6H. MAKES NEEDS KNOWN, CALL LIGHT WITH IN REACH, WCTM
--- NOTE | 2021-05-23 17:56 | NUR ---
PATIENT MAKES NEEDS KNOWN, CALL LIGHT WITH IN REACH, ALERT AND STILL CONFUSED, COGNITIVE SCREEN SCORE = DEMENTIA, GALVANIZER WORKING ON PATIENT NEEDS AND POSSIBLE POAS. DENIES PAIN, 4L O2 VIA NC, POOR CIRCULATION, RAYNAULDS SYNDROME, BIPAP @ NIGHT 29/09 3L, LS DIMISHED THROUGH OUT. AFIB-NSR, PATIENT CONITNUED TO FLIP BACK AND FORTH, HEART RATE 92, SATS SPOT CHECK 93%, BP 141/84 (102). REMOVED URBAN, SKIN PRECAUTIONS, APS ON PATIENT CASE EVEN BEFORE ADMIT, WILL RELAY TO PM RN, WCTM, MED/TELE STATUS
--- NOTE | 2021-05-23 17:56 | NUR ---
URBAN REMOVED PATEINT TOLERATED WITH EASE
--- NOTE | 2021-05-23 20:05 | NUR ---
SHIFT ASSESSMENT ASSUMED CARE OF PT @ 1900. PT ALERT TO PERSON AND PLACE. CALM AND COOPERATIVE, FRIENDLY DEMEANOR. CONFUSED AT TIMES, EASILY REDIRECTABLE. EQUAL AND STRONG GLOBAL ACCOUNT EXECUTIVE STRENGTH, TOES REMAIN DISCOLORED AND PAINFUL. PT C/O MODERATE PAIN IN HIP/ FEET. URBAN CATHETER DC'D TODAY, PT ABLE TO AMBULATE WITH ASSISTANCE TO COMMODE WITH PREVIOUS NURSE. PT ON O2 VIA NC DURING ASSESSMENT, AFTER REVIEWING PHYSICIANS NOTE NC REMOVED. PT CURRENTLY ON ROOM AIR c O2 SATS >95%. PT ASSISTING WITH REPOSITIONING. CALL LIGHT WITHIN REACH.
[2021-05-24 03:20] LABS: Hemoglobin 9.4 g/dL (11.5-16.0); Mean Corpuscular HGB 30.5 pg (26.0-34.0); Mean Corpuscular HGB Conc 31.3 g/dL (31.5-36.5); Mean Corpuscular Volume 97 fL (80-100); Mean Platelet Volume 12.5 fL (9.1-12.4); NRBC ABSOLUTE 0.04 K/mm3 (0.00-0.02); NRBC Auto 0.4 /100 WBC (0.0-0.2); Platelet Count 246 K/mm3 (150-400); RDW Coefficient Variation 16.9 % (11.7-14.2); RDW Standard Deviation 57.4 fL (35.1-46.3); Red Blood Cell Count 3.08 M/mm3 (3.80-5.20)
[2021-05-24 03:41] LABS: Albumin, Blood 2.7 g/dL (3.4-5.0); Anion Gap 7 mmol/L (6-16); Blood Urea Nitrogen 57 mg/dL (8-24); Bun/Creatinine Ratio 29.1 (12.0-20.0); CO2, Blood 25 mmol/L (21-32); Calcium, Blood 8.7 mg/dL (8.5-10.1); Chloride, Blood 109 mmol/L (98-108); Creatinine, Blood 1.96 mg/dL (0.40-1.00); Glomerular Filtration Rate 25 (60-); Glucose, Blood 151 mg/dL (70-99); Phosphorus, Blood 2.6 mg/dL (2.5-4.9); Potassium, Blood 3.9 mmol/L (3.5-5.5); Sodium, Blood 141 mmol/L (136-145)
--- NOTE | 2021-05-24 06:28 | NUR ---
SHIFT SUMMARY PT ALERT BUT BECAME MORE CONFUSED/ DELIRIOUS T/O THE NIGHT. PT REMAINS ALERT TO PERSON AND . TALKING TO PEOPLE NOT IN THE ROOM, REACHING UP FOR OBJECTS, ATTEMPTING TO GET OUT OF BED. PT REDIRECTABLE BUT REQUIRED FREQUENT ADJUSTMENTS TO POSITION AND REMINDING THAT SHE IS IN THE HOSPITAL. PT DID NOT SLEEP. BECOMING ANGRY/ AGITATED THIS AM. PT ABLE TO TAKE PO MEDS AND FLUIDS. ATTEMPTED TO GIVE PT ENSURE BUT PT STATED "ARE YOU TRYING TO MAKE ME FAT". PT INCONTINENT OF URINE ONCE DURING NIGHT, ASSISTED THIS NURSE WITH CHANGING ATTENDS.
--- NOTE | 2021-05-24 09:06 | NUR ---
ASSUMED CARE OF PT, REPORT RCV'D FROM MINDY SMART. PT ALERT TO SELF, FOLLOWS COMMANDS. 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 PT EXPERIENCING AUDITORY AND VISUAL HALLUCINATIONS. REMAINS PLEASANT AND COOPERATIVE WITH CARE, ABLE TO FEED SELF AND TAKE ORAL MEDICATIONS WITHOUT INCIDENT. SATS 98% ON ROOM AIR. CONVERTED FROM NSR TO AFIB RVR WITH HR 120-170'S. SEE FULL SHIFT ASSESSMENT.
--- NOTE | 2021-05-24 11:47 | NUR ---
PT INCREASINGLY CONFUSED. PULLING AT LINES/CORDS, ATTEMPTING TO GET OUT OF BED. PT PLEASANT, COOPERATIVE, REDIRECTABLE. BED ALARM AND TAB ALARM IN PLACE. BED LOW/LOCKED POSITION, DOOR/CURTAIN OPEN.
--- NOTE | 2021-05-24 12:12 | NUR ---
PT STOPPER MAKER HELPER (ANDRES) UPDATED WITH PT'S STATUS. MESSAGE LEFT FOR DR. MOE REGARDING PLAN OF CARE.
--- NOTE | 2021-05-24 14:25 | NUR ---
ADULT PROTECTIVE SERVICES WORKER SAMANTHA LIMA ([phone]) AT BEDSIDE FOLLOWING UP ON REPORT MADE PRIOR TO ADMISSION. WILL PASS INFORMATION TO COLLECTION SYSTEMS FOREMAN. APS RECOMMENDING SNF/LT PLACEMENT.
[2021-05-24 16:57] LABS: Albumin, Blood 3.2 g/dL (3.4-5.0); Anion Gap 9 mmol/L (6-16); Blood Urea Nitrogen 52 mg/dL (8-24); Bun/Creatinine Ratio 28.4 (12.0-20.0); CO2, Blood 25 mmol/L (21-32); Calcium, Blood 9.7 mg/dL (8.5-10.1); Chloride, Blood 105 mmol/L (98-108); Creatinine, Blood 1.83 mg/dL (0.40-1.00); Glomerular Filtration Rate 27 (60-); Glucose, Blood 119 mg/dL (70-99); Phosphorus, Blood 3.1 mg/dL (2.5-4.9); Potassium, Blood 3.8 mmol/L (3.5-5.5); Sodium, Blood 139 mmol/L (136-145)
--- NOTE | 2021-05-24 18:48 | NUR ---
SHIFT SUMMARY PT INCREASINGLY CONFUSED T/O SHIFT. PLACED IN RAUL VEST D/T MULTIPLE ATTEMPTS TO TO UNSAFELY AMBULATE. FOR MOST OF SHIFT PT PLEASANT, REDIRECTABLE, AND COOPERATIVE WITH CARE. THIS EVENING PT IS REFUSING TO EAT, REFUSING MEDICATIONS, TEARFUL/EMOTIONAL, THROWING FOOD TRAY AND DRINK. VSS T/O SHIFT, CURRENT NSR HR 95. ATTENDS IN PLACE, PT ABLE TO EXPRESS WHEN SHE NEEDS BEDPAN AND ABLE TO HELP REPOSITION. CARE MANAGEMENT TO SEE PT TOMORROW REGARDING PLACEMENT OPTIONS. WILL REPORT TO ONCOMING NURSE.
--- NOTE | 2021-05-24 20:05 | NUR ---
SHIFT ASSESSMENT PT IN BED, ALERT BUT VERY CONFUSED. VISUAL AND AUDITORY HALLUCINATIONS. REACHING FOR OBJECTS IN THE ROOM, YELLING OUT TO PEOPLE NOT IN THE ROOM. PT DIFFICULT TO REDIRECT, WILL INTERMITTENTLY FOLLOW COMMANDS. ABLE TO TAKE MEDS AND DRINK, REFUSES FOOD. IN RAUL VEST DUE TO IMPULSIVENESS AND FALL RISK. PT ON RA, SATS >90%. AFIB AND SINUS RYTHM ON THE MONITOR. PT INCONTINENT OF URINE, ATTENDS IN PLACE. WILL CONTINUE TO MONITOR CLOSELY.
--- NOTE | 2021-05-25 05:59 | NUR ---
SHIFT SUMMARY PT SETTLED DOWN RIGHT AFTER MIDNIGHT, WAS ABLE TO SLEEP FOR MOST OF THE MORNING. PRIOR TO SLEEP PT WAS VERY AGITATED, SWINGING AT STAFF, YELLING, DIFFICULT TO CONSOLE. PT INCONTINENT OF URINE THIS AM, NO BM. PT REFUSED AM MEDS, REMAINS DROWSY. CARDIAC RYTHM CHANGED FROM A-FIB TO NSR c PVC'S DURING MORNING, CURRENTLY IN A-FIB IN 110'S. BP WNL. O2 SATS >95% ON RA. AWAITING CASE MANAGEMENT FOR PLACEMENT.
--- NOTE | 2021-05-25 07:29 | NUR ---
ASSUMED CARE OF PT THIS AM. PT. RESTING QUIETLY AT THIS TIME. CURRENTLY IN RAUL VEST, UPON ENTERING THE ROOM, PT SLEEPING SIDEWAYS IN THE BED, ASSISTED TO REPOSITION. PT CACHECTIC, REPOSITIONING SELF IN BED FOR COMFORT. PT CURLS UP IN BALL ON HER SIDE AND CLOSES EYES. ANSWERING SOME QUESTIONS, THEN FALLING ASLEEP. PT REMAINS ON TELE. NADN. WILL FULLY ASSESS WHEN PT WAKES. NEW ATTENDS PLACED.
--- NOTE | 2021-05-25 10:17 | NUR ---
WOKE PT FOR MEDICATION ADMIN. PT ATTENDS CHANGED. INCONT OF URINE. PT REPOSITIONED IN BED, BUT ABLE TO REPOSITION SELF, CURLS UP IN A BALL ON HER SIDE. WARM BLANKETS PROVIDED.REFUSING BREAKFAST TRAY TODAY, REQUESTING PEPSI. PT. TOOK MEDS WHOLE ONE AT A TIME WITH PEPSI THEN WENT BACK TO SLEEP. PT VSS THIS AM.
--- NOTE | 2021-05-25 14:00 | NUR ---
Case conference with pt's GUILLAUME, RN and friend designated Molly VELARDE. She was concerned that pt's code status was FULL CODE and states that when Dr reviewed with her on admission in PCU, pt stated she wanted to be a DNR as consistent with previous conversations with friends. Molly also states pt would not want dialysis initiated if kidney failure worsens. Pt has had some confusion t/o her stay but I plan to assess mentation and discuss with pt SHELLI. Attempted visit and she was working with PT. RN states she is much clearer with finally getting a long period of solid sleep. She is being transferred to medical floor this afternoon. Plan to speak with pt tomorrow re: goals of care and desired code status.
--- NOTE | 2021-05-25 14:16 | NUR ---
PT. AWAKE AND ALERT AT THIS TIME. ORIENTED TO SURROUNDINGS, TIME AND YEAR. PT. REPORTS MILD PAIN TO TOE. PT. COOPERATIVE WITH CARE, ABLE TO ASSIST WITH ATTENDS CHANGE BY LIFTING HIPS. VSS. PHYSICAL THERAPY IN TO WORK WITH PT, PLANS FOR TRANSFER TO MEDICAL FLOOR.
--- NOTE | 2021-05-25 17:03 | NUR ---
SHIFT SUMMARY THE PATIENT ARRIVED ON THE MEDICAL FLOOR AT 1455 TODAY. THE PATIENT IS A/O X2, PLEASANT AND COOPERATIVE WITH CARE. THE PATIENT IS ON RA. NO TELE. IV WITH 2 LUMEN IN THE RIGHT FOREARM SALINE LOCKED. THE PATIENT CAN BE HARD OF HEARING AND HAS LACK OF VISION IN THE LEFT EYE. THE PATIENT HAS HAD BETTER PO INTAKE SINCE ARRIVING THIS SHIFT. NO ACUTE CHANGES OR DISTRESS AT THIS TIME. VSS. BED ALARM ON. BED IN LOWEST POSITION. THIS NURSE WILL CONTINUE TO CARE FOR THE PATIENT UNTIL SHIFT REPORT IS GIVEN TO ONCOMING NURSE.
[2021-05-25] MEDS ORDERED: DICLOFENAC SOD100 G1 TOP (22:21)
[2021-05-25] MEDS ORDERED: CREON DR 6,0001 EACH PO (22:22)
[2021-05-26 05:40] LABS: Albumin, Blood 2.9 g/dL (3.4-5.0); Anion Gap 7 mmol/L (6-16); Blood Urea Nitrogen 61 mg/dL (8-24); Bun/Creatinine Ratio 31.9 (12.0-20.0); CO2, Blood 27 mmol/L (21-32); Calcium, Blood 8.9 mg/dL (8.5-10.1); Chloride, Blood 106 mmol/L (98-108); Creatinine, Blood 1.91 mg/dL (0.40-1.00); Glomerular Filtration Rate 25 (60-); Glucose, Blood 145 mg/dL (70-99); Phosphorus, Blood 3.9 mg/dL (2.5-4.9); Sodium, Blood 140 mmol/L (136-145)
--- NOTE | 2021-05-26 06:31 | NUR ---
SHIFT SUMMARY PT IS A 75 Y/O FEMALE, ADMITTED FOR AFIB WITH RVR. SHE IS A&O X 2, COWLITZ. 1[place] [facility] [place] C/O ACUTE PAIN, NAUSEA OR SOB. VITAL SIGNS STABLE. NO ACUTE CHANGES IN PT CONDITION NOTED DURING THE NIGHT. WILL CONTINUE TO MONITOR AND TREAT PER EMAR UNTIL HAND OFF TO DAY SHIFT RN.
--- NOTE | 2021-05-26 18:49 | NUR ---
SHIFT SUMMARY THE PATIENT IS ALERT AND ORIENTED X3, PLEASANT AND COOPERATIVE WITH CARE. THE PATIENT CALLS APPROPRIATELY. USES BEDPAN. CODE STATUS CHANGED THIS AFTERNOON. PATIENT WAS MEDICATED X1 FOR PAIN IN LEFT TOE. THE PATIENT SLEPT A LOT OF THE DAY. NO ACUTE CHANGES. VSS. CALL LIGHT WITHIN REACH. BED IN LOWEST POSITION.
[2021-05-27 04:47] LABS: Albumin, Blood 2.6 g/dL (3.4-5.0); Anion Gap 7 mmol/L (6-16); Blood Urea Nitrogen 67 mg/dL (8-24); Bun/Creatinine Ratio 31.8 (12.0-20.0); CO2, Blood 25 mmol/L (21-32); Chloride, Blood 107 mmol/L (98-108); Creatinine, Blood 2.11 mg/dL (0.40-1.00); Glomerular Filtration Rate 23 (60-); Glucose, Blood 135 mg/dL (70-99); Phosphorus, Blood 3.1 mg/dL (2.5-4.9); Potassium, Blood 4.4 mmol/L (3.5-5.5); Sodium, Blood 139 mmol/L (136-145)
--- NOTE | 2021-05-27 06:47 | NUR ---
SHIFT SUMMARY PT IS A 75 Y/O FEMALE, ADMITTED FOR AFIB WITH RVR. SHE IS A&O X 2, 1[place] TO [facility] [place]. NO C/O ACUTE PAIN, NAUSEA OR SOB. VITAL SIGNS STABLE. PT SLEPT WELL THROUGH THE NIGHT. NO ACUTE CHANGES IN PT CONDITION NOTED. WILL CONTINUE TO MONITOR AND TREAT PER EMAR UNTIL HAND OFF TO DAY SHIFT RN.
--- NOTE | 2021-05-27 19:17 | NUR ---
SHIFT SUMMARY PATIENT A&O 2-3. SLEPT MOST OF THE MORNING. WORKED WITH PT TODAY AND AMBULATED 1PA WITH FWW AND GAIT BELT TO RESTROOM. SAT UP IN CHAIR PART OF THE AFTERNOON. C/O PAIN AND CONSTIPATION, MEDICATED PER APR. REPORT GIVEN TO ONCOMING RN.
--- NOTE | 2021-05-28 05:32 | NUR ---
PM SHIFT SUMMARY PATIENT SLEPT VAST MAJORITY OF SHIFT. SHE HAD NO COMPLAINTS TO REPORT. MEPILEX TO SACRAL REGION / BUTTOCKS ARE CDI. SHE DID NOT HAVE ANY HALLUCINATIONS DURING THE SHIFT. SHE IS AN EASY 1 PERSON CHANGE WHEN SHE HAS AN INCONTINENT EPISODE. WE ARE AWAITING PLACEMENT TO A SNF AT THIS TIME.
[2021-05-28] MEDS ORDERED: ELIQUIS2.5 MG PO (12:37)
[2021-05-28] MEDS ORDERED: FURO40 PO (12:38)
[2021-05-28] MEDS ORDERED: METO50ER PO (12:39)
[2021-05-28] MEDS ORDERED: MIRALAX17 GM PO (12:41)
[2021-05-28] MEDS ORDERED: QUET25 PO (12:42)
--- NOTE | 2021-05-28 13:05 | NUR ---
Newly completed POLST form sent to medical records for scanning into EMR. Original POLST returned to RN and pt record to be sent with her on d/c. Plan in place for SNF stay on d/c per CM notes and IDT meeting this am.
[2021-05-28 16:47] LABS: Influenza A, PCR NEGATIVE (NEGATIVE); Influenza B, PCR NEGATIVE (NEGATIVE); Resp Syncytial Virus, PCR NEGATIVE (NEGATIVE); SARS-Cov-2 (COVID-19) PCR, MMC NEGATIVE (NEGATIVE)
--- NOTE | 2021-05-28 18:02 | NUR ---
DISCHARGE SUMMARY PATIENT DISCHARGED TO [facility]. REPORT CALLED TO ROHINI GUILLEN. DISCHARGE PAPERWORK INCLUDING MEDICATION LIST, NORCO HARD SCRIPT, AND FOLLOW UP APPT ORDERS SENT WITH PATIENT. IV DC'D. PATIENT AND TWO BAGS OF BELONGINGS TAKEN VIA WHEELCHAIR TRANSPORT.
== END 2021-05-28 18:02 | DRG 193 ==
LOC: ER 11:54 → PCU 18:12 → ICUE 18:12 → PCU 18:56 → ICUE 05-21 18:50 → MEDS 05-25 14:55
PROVIDERS: Emergency Medicine; Internal Medicine; Pharmacist; ADMIT Internal Medicine
DX: J18.9 Pneumonia, unspecified organism (principal); E43 Unspecified severe protein-calorie malnutrition; J96.01 Acute respiratory failure with hypoxia; I50.31 Acute diastolic (congestive) heart failure; N17.0 Acute kidney failure with tubular necrosis; G93.41 Metabolic encephalopathy; I13.0 Hypertensive heart and chronic kidney disease with heart failure and stage 1 through stage 4 chronic kidney disease, or unspecified chronic kidney disease; I96 Gangrene, not elsewhere classified; K86.1 Other chronic pancreatitis; Z20.822 Contact with and (suspected) exposure to COVID-19; G47.00 Insomnia, unspecified; Z51.5 Encounter for palliative care; D69.6 Thrombocytopenia, unspecified; I48.91 Unspecified atrial fibrillation; J45.20 Mild intermittent asthma, uncomplicated; E03.9 Hypothyroidism, unspecified; M54.50 Low back pain, unspecified; G89.29 Other chronic pain; N18.30 Chronic kidney disease, stage 3 unspecified; M25.511 Pain in right shoulder; M25.512 Pain in left shoulder; E78.5 Hyperlipidemia, unspecified; R25.2 Cramp and spasm; M81.0 Age-related osteoporosis without current pathological fracture; K21.9 Gastro-esophageal reflux disease without esophagitis; E55.9 Vitamin D deficiency, unspecified; Z87.442 Personal history of urinary calculi; Z89.431 Acquired absence of right foot; Z89.432 Acquired absence of left foot; Z88.0 Allergy status to penicillin; Z88.1 Allergy status to other antibiotic agents; Z88.8 Allergy status to other drugs, medicaments and biological substances; Z79.899 Other long term (current) drug therapy
CPT/HCPCS: 0241U; 36415; 36600; 51703; 70450; 71045; 72100; 72170; 73030; 80053; 80069; 81001; 82306; 82803; 83690; 83735; 83880; 84145; 84443; 84484; 85025; 85027; 85520; 85610; 86141; 93005; 93010; 93306; 93926; 94640; 94660; 94664; 94760; 94762; 96365; 97110; 97116; 97129; 97130; 97162; 97166; 97530; 97535; 99283-25; 99285-25; A9270; J0360; J0696; J1644; J1940; J2250; J2405; J3010; J7030; J7050

== ENCOUNTER 2021-06-28 10:23 | Inpatient (IN) | payer OTHER, MEDICARE ==
[~2021-06-28] VITALS: Ht 160 cm; Wt 29.4 kg
[~2021-06-28 10:23] MED LIST changes: +ALBU2.5V5 INH; +CATAPRES0.1 MG PO; +DICLOFENAC SOD100 G1 TOP; +ELIQUIS2.5 MG PO; +FELODIPINE ER2.5 M1 PO; +FURO40 PO; +Flonase 0.05% N16 GM; +METO50ER PO; +MIRALAX17 GM PO; +MIRT15 PO; +Norco 10-325 T1 EACH PO; +QUET25 PO
[2021-06-28 10:58] LABS: Hematocrit 43.8 % (33.0-51.0); Hemoglobin 13.2 g/dL (11.5-16.0); Mean Corpuscular HGB 29.5 pg (26.0-34.0); Mean Corpuscular HGB Conc 30.1 g/dL (31.5-36.5); Mean Corpuscular Volume 98 fL (80-100); Mean Platelet Volume 10.8 fL (9.1-12.4); Platelet Count 433 K/mm3 (150-400); RDW Coefficient Variation 14.5 % (11.7-14.2); RDW Standard Deviation 52.3 fL (35.1-46.3); Red Blood Cell Count 4.48 M/mm3 (3.80-5.20)
[2021-06-28 10:59] LABS: BASOPHILS ABSOLUTE AUTO 0.03 K/mm3 (0.00-0.23); BASOPHILS PERCENT AUTO 0 % (0-2); EOSINOPHILS ABSOLUTE AUTO 0.06 K/mm3 (0.00-0.68); EOSINOPHILS PERCENT AUTO 1 % (0-6); IMMATURE GRAN ABSOLUTE AUTO 0.03 K/mm3 (0.00-0.10); IMMATURE GRAN PERCENT AUTO 0 % (0-1); LYMPHOCYTES PERCENT AUTO 46 % (21-46); MONOCYTES ABSOLUTE AUTO 0.86 K/mm3 (0.16-1.47); MONOCYTES PERCENT AUTO 8 % (4-13); NEUTROPHILS PERCENT AUTO 45 % (41-73); White Blood Cell Count 11.28 K/mm3 (4.00-11.30)
[2021-06-28 11:09] LABS: Albumin, Blood 3.5 g/dL (3.4-5.0); Albumin/Globulin Ratio 0.8 (0.8-1.8); Bilirubin, Total 0.3 mg/dL (0.1-1.0); Bun/Creatinine Ratio 21.2 (12.0-20.0); Creatinine, Blood 1.04 mg/dL (0.40-1.00); Globulin, Blood 4.2 g/dL (2.2-4.0); Potassium, Blood 3.9 mmol/L (3.5-5.5); Total Protein, Blood 7.7 g/dL (6.4-8.2)
[2021-06-28 12:35] LABS: Source, Urine Clean Catch
[2021-06-28 12:43] LABS: Appearance, Urine Clear (Clear); Bilirubin, Urine Neg (Neg); Blood, Urine 1+ (Neg); Color, Urine Yellow (P-Yellow); Glucose Qualitative, Urine Neg (Neg); Ketones, Urine Neg (Neg); Leukocyte Esterase, Urine Neg (Neg); Nitrite, Urine Neg (Neg); Protein, Urine 2+ (Neg); Specific Gravity, Urine 1.025 (1.003-1.022); Urobilinogen, Urine NORM (Normal)
[2021-06-28 12:54] LABS: Red Blood Cells, Urine 0-2 /hpf (0-2)
[2021-06-28 12:55] LABS: Bacteria Few /hpf; Squamous Epithelial Cells Rare /hpf (Few)
--- NOTE | 2021-06-28 17:35 | NUR ---
PATIENT IS ALERT AND ORIENTED TO SELF. PATIENT WAS ADMITTED TO MEDICAL FLOOR FROM ED AT 1700. ADMISSION DONE BUT LIMITED INPUT FROM PATIENT. PATIENT IS CONFUSED BUT PLEASENT. BED ALARM ON. VITAL SIGNS REVIEWED. NO ACUTE EVENTS THIS SHIFT. BED IN LOCKED AND LOWEST POSITION. CALL LIGHT IN PLACE.
[2021-06-29 05:38] LABS: Bun/Creatinine Ratio 23.4 (12.0-20.0); Calcium, Blood 9.2 mg/dL (8.5-10.1); Creatinine, Blood 0.94 mg/dL (0.40-1.00); Potassium, Blood 3.4 mmol/L (3.5-5.5)
--- NOTE | 2021-06-29 06:31 | NUR ---
SHIFT SUMMARY: PATIENT ORIENTED TO SELF ONLY. AUDITORY AND VISUAL HALLUCINATIONS. TAKES PILLS WHOLE IN APPLESAUCE. ACTIVE BODY MOVEMENTS FLIPS SIDEWAYS, THROWS LIMBS OVER RAIL. PATIENT DENIES NEEDING TO GET UP. INCONT OF URINE. TELE = NSR 80-90S MURUMUR.
--- NOTE | 2021-06-29 17:24 | NUR ---
SHIFT SUMMARY PT RESTING QUIETLY AT START OF SHIFT. WOKE EASILY FOR CARE. PT VERY PLEASANT BUT CONFUSED AND DISORIENTED. PER SHIFT REPORT, PT WITH HX OF DEMENTIA. PT INCONTINENT OF BLADDER ALL DAY TODAY. BP ELEVATED AT START OF SHIFT WELL, SEE CHART. BP MEDS GIVEN PER EMAR. BP YANY'D BUT STILL ELEVATED. DR MAC NOTIFIED, NEW ORDERS PLACED. P/T IN TO WORK WITH PT WELL TODAY. PT IS DIFFICULT TO ASSESS AND COMMUNICATE WITH D/T CONFUSION AND DEMENTIA. PLEASANTLY CO-OP THOUGH. NO C/O. CALL LT IN REACH. BED ALARM ON FOR SAFETY.
--- NOTE | 2021-06-29 17:25 | NUR ---
pt was sleeping at the beginning of shift. pt took meds whole with applesauce. pt had increase bp at the beginning of the shift. pt received prn bp medication due to bp 199/94. Pt BP was retaken at 174/84, Dr. sutton was notified and ordered lasix. pt was plesant throughout the shift. pt BP will contiuned to be monitored. pt resting in bed with call light within reach.
[2021-06-30 05:14] LABS: BASOPHILS ABSOLUTE AUTO 0.02 K/mm3 (0.00-0.23); BASOPHILS PERCENT AUTO 0 % (0-2); EOSINOPHILS ABSOLUTE AUTO 0.15 K/mm3 (0.00-0.68); EOSINOPHILS PERCENT AUTO 2 % (0-6); Hematocrit 38.1 % (33.0-51.0); IMMATURE GRAN ABSOLUTE AUTO 0.03 K/mm3 (0.00-0.10); IMMATURE GRAN PERCENT AUTO 0 % (0-1); LYMPHOCYTES ABSOLUTE AUTO 4.23 K/mm3 (0.84-5.20); LYMPHOCYTES PERCENT AUTO 42 % (21-46); MONOCYTES ABSOLUTE AUTO 1.11 K/mm3 (0.16-1.47); MONOCYTES PERCENT AUTO 11 % (4-13); Mean Corpuscular HGB 30.2 pg (26.0-34.0); Mean Corpuscular HGB Conc 31.5 g/dL (31.5-36.5); Mean Corpuscular Volume 96 fL (80-100); NEUTROPHILS ABSOLUTE AUTO 4.48 K/mm3 (1.96-9.15); NEUTROPHILS PERCENT AUTO 45 % (41-73); RDW Coefficient Variation 14.4 % (11.7-14.2); RDW Standard Deviation 50.7 fL (35.1-46.3); Red Blood Cell Count 3.98 M/mm3 (3.80-5.20); White Blood Cell Count 10.02 K/mm3 (4.00-11.30)
[2021-06-30 05:21] LABS: Mean Platelet Volume 10.6 fL (9.1-12.4); Platelet Count 398 K/mm3 (150-400)
[2021-06-30 05:36] LABS: Albumin, Blood 2.9 g/dL (3.4-5.0); Anion Gap 3 mmol/L (6-16); Blood Urea Nitrogen 22 mg/dL (8-24); Bun/Creatinine Ratio 19.1 (12.0-20.0); CO2, Blood 28 mmol/L (21-32); Calcium, Blood 9.3 mg/dL (8.5-10.1); Chloride, Blood 110 mmol/L (98-108); Creatinine, Blood 1.15 mg/dL (0.40-1.00); Glomerular Filtration Rate 49 (60-); Glucose, Blood 115 mg/dL (70-99); Phosphorus, Blood 3.7 mg/dL (2.5-4.9); Potassium, Blood 3.6 mmol/L (3.5-5.5); Sodium, Blood 141 mmol/L (136-145)
--- NOTE | 2021-06-30 05:57 | NUR ---
SHIFT SUMMARY PATIENT ALERT AND ORIENTED TO SELF. HAD NO COMPLAINTS OF PAIN OR SHORTNESS OF BREATH. NO ACUTE ISSUES NOTED. CALL LIGHT WITHIN REACH. REPORT GIVEN TO ONCOMING RN.
--- NOTE | 2021-06-30 14:26 | NUR ---
SHIFT SUMMARY PT SLEEPING AT START OF SHIFT. WOKE FOR CARE, BUT WAS DROWSY. PT DID WAKE TO TAKE AM MEDS AND THEN ATE HER BREAKFAST. PT REQUIRED FEEDING ASSISTANCE, BUT ATE VERY WELL AND DRINKING ALL OF ENSURE WITH EACH MEAL WELL. PT WENT BACK TO SLEEP AFTER BREAKFAST. WOKE UP WHEN DR NG CAME IN TO SEE HER. PT REMAINS CONFUSED, BUT IS VERY PLEASANT AND CO-OP WITH CARE. PT WAS MORE AWAKE AND TALKING MORE YESTERDAY. PT HAS SLEPT MOST OF THIS SHIFT WHEN NOT WOKE FOR CARE. NO S/SX OF DISTRESS NOTED. CALL LT IN REACH.
--- NOTE | 2021-06-30 18:08 | NUR ---
PT WAS SLEEP IN BED, WOKE FOR MEDICATION AND VITALS. PT SLEPT MOST OF THE SHIFT. DR. DANIELS ASSESSED THE PT AND CHANGE HER HYDRALAZINE PRN BP MEDICATION TO SCHEDULDED Q6HRS. PT BP HAS IMPROVED THROUGHTOUT THE SHIFT. PT NEEDS ASSISTANCE DURING MEALS THROUGHOUT SHIFT. PT HAS BEEN PLESANT, BUT CONTINOUS TO BE CONFUSED. PT IS RESTING IN BED WITH CALL LIGHT WITHIN REACH.
[2021-07-01 05:01] LABS: Hematocrit 39.9 % (33.0-51.0); Hemoglobin 12.7 g/dL (11.5-16.0); Mean Corpuscular HGB Conc 31.8 g/dL (31.5-36.5); Mean Corpuscular Volume 94 fL (80-100); Mean Platelet Volume 10.9 fL (9.1-12.4); Platelet Count 309 K/mm3 (150-400); RDW Coefficient Variation 14.6 % (11.7-14.2); RDW Standard Deviation 50.4 fL (35.1-46.3); Red Blood Cell Count 4.24 M/mm3 (3.80-5.20)
[2021-07-01 05:04] LABS: White Blood Cell Count 13.46 K/mm3 (4.00-11.30)
[2021-07-01 05:16] LABS: Bun/Creatinine Ratio 24.3 (12.0-20.0); Calcium, Blood 9.3 mg/dL (8.5-10.1); Creatinine, Blood 1.15 mg/dL (0.40-1.00); Potassium, Blood 3.8 mmol/L (3.5-5.5)
[2021-07-01 06:58] LABS: BASOPHILS PERCENT MAN 0 % (0-2); EOSINOPHILS ABSOLUTE MAN 0.26 K/mm3 (0.00-0.68); EOSINOPHILS PERCENT MAN 2 % (0-6); LYMPHOCYTES ABSOLUTE MAN 6.86 K/mm3 (0.84-5.20); LYMPHOCYTES PERCENT MAN 51 % (21-46); MONOCYTES ABSOLUTE MAN 1.88 K/mm3 (0.16-1.47); MONOCYTES PERCENT MAN 14 % (4-13); NEUTROPHILS ABSOLUTE MAN 4.44 K/mm3 (1.96-9.15); SEG NEUTROPHILS PERCENT MAN 33 % (41-73); TOTAL CELLS COUNTED 100
--- NOTE | 2021-07-01 07:17 | NUR ---
SHIFT SUMMARY PATIENT ALERT AND ORIENTED TO SELF. HAD NO COMPLAINTS OF PAIN OR SHORTNESS OF BREATH. HAD NO ACUTE ISSUES NOTED OVERNIGHT. CALL LIGHT WITHIN REACH. REPORT GIVEN TO ONCOMING RN.
--- NOTE | 2021-07-01 17:27 | NUR ---
SHIFT SUMMARY PATIENT DENIES PAIN, NAUSEA, AND SHORTNESS OF BREATH. PATIENT IS A&O TO SELF. PATIENT MOSTLY JUST SAYS "YEAH" TO EVERY QUESTION. PATIENT WORKED WITH PT TODAY. THEY ARE RECOMMENDING LTC. PATIENT SLEPT MOST OF SHIFT. PATIENT NEEDS ASSISTANCE WHEN EATING. PATIENT HAS POOR PO INTAKE, BUT DOES DRINK ENSURE THROUGHOUT DAY. PATIENT IS VERY PLEASANT AND COOEPRATIVE WITH CARE.
[2021-07-02] MEDS ORDERED: VALSARTAN160 MG PO (00:36)
[2021-07-02] MEDS ORDERED: CLON.2 PO (00:37)
[2021-07-02] MEDS ORDERED: ALPHA GALACTOSIDASE PO (00:41)
[2021-07-02] MEDS ORDERED: MIRALAX17 GM PO (00:43)
--- NOTE | 2021-07-02 05:09 | NUR ---
SUMMARY NO NEW ISSUES NOTED. PT HAS BEEN SLEEPING T/OUT SHIFT. PT HAS IV FLUIDS RUNNING ORDERED AND HAS BEEN VOIDING. PT CURRENTLY RESTING COMFORTABLY. CALL LIGHT IN REACH AND BED ALARM ON.
[2021-07-02 05:54] LABS: BASOPHILS ABSOLUTE AUTO 0.03 K/mm3 (0.00-0.23); BASOPHILS PERCENT AUTO 0 % (0-2); EOSINOPHILS ABSOLUTE AUTO 0.09 K/mm3 (0.00-0.68); EOSINOPHILS PERCENT AUTO 1 % (0-6); Hemoglobin 14.2 g/dL (11.5-16.0); IMMATURE GRAN ABSOLUTE AUTO 0.04 K/mm3 (0.00-0.10); IMMATURE GRAN PERCENT AUTO 0 % (0-1); LYMPHOCYTES ABSOLUTE AUTO 4.82 K/mm3 (0.84-5.20); LYMPHOCYTES PERCENT AUTO 41 % (21-46); MONOCYTES ABSOLUTE AUTO 1.25 K/mm3 (0.16-1.47); MONOCYTES PERCENT AUTO 11 % (4-13); Mean Corpuscular HGB Conc 31.6 g/dL (31.5-36.5); Mean Corpuscular Volume 95 fL (80-100); Mean Platelet Volume 11.2 fL (9.1-12.4); NEUTROPHILS ABSOLUTE AUTO 5.66 K/mm3 (1.96-9.15); NEUTROPHILS PERCENT AUTO 48 % (41-73); Platelet Count 375 K/mm3 (150-400); RDW Coefficient Variation 14.7 % (11.7-14.2); RDW Standard Deviation 51.5 fL (35.1-46.3); Red Blood Cell Count 4.74 M/mm3 (3.80-5.20); White Blood Cell Count 11.89 K/mm3 (4.00-11.30)
--- NOTE | 2021-07-02 12:53 | NUR ---
REPORT REPORT GIVEN TO MINDY OWENS. PATIENT RESTING COMFORTABLY.
--- NOTE | 2021-07-02 13:04 | NUR ---
ASSUMED CARE OF PT. REPORT RECEIVED FROM LEI GUILLEN. BEDSIDE REPORT RECEIVED AND PT APPEARS TO BE IN NO DISTRESS. RESTING WITH EYES SHUT RR E/U.
--- NOTE | 2021-07-02 18:52 | NUR ---
SHIFT SUMMARY: PT A/O X 1 BEDREST. PLEASANT AND COOPERATIVE WITH CARE. PT RESTED WITH EYES SHUT RR E/U. CACHECTIC IN APPEARANCE. SHE DOES AWAKE WITH VERBAL STIMULI. SHE DOES TALK TO HERSELF. MAY HAVE HALLUCINATIONS. NO S/S OF PAIN, SOB AT SHIFT END. TOLERATING PO MEDS WHOLE WITH APPLESAUCE. IV FLUIDS CONTINUE.
--- NOTE | 2021-07-03 14:12 | NUR ---
PT FALL- CALLED DR NG. PT WAS ATTEMPTING TO GET OUT OF BED WITHOUT ASSISTANCE, SHE CLIMBED BETWEEN THE SIDE RAILS OF THE BED AND, APPEARS TO HAVE SLID OUT OF THE BED TO HER KNEES. PT STATES SHE DID NOT HIT HER HEAD SHE DID SAY SHE HIT HER ELBOWS, NO NOTED DISCOLORATION AT THIS TIME, SKIN INTACT. DR TAN. NO NEW ORDERS AT THIS TIME
--- NOTE | 2021-07-03 18:23 | NUR ---
SHIFT SUMMARY- PT ALERT AND ORIENTED TO SELF, SHE HAS A HARSH WAY OF SPEAKING AND OFTEN USES AGRESSIVE LANGUAGE. SHE IS A FEEDER AND EATS WELL WHEN FED. SHE ATE WELL AT BREAKFAST WHEN THE FOOD WAS FINGER FOOD, A BANANNA OR MUFFIN THAT SHE HOLDS IN HER HAND. PT HAD A FALL EARLIER IN THE SHIFT WITH NO APPARENT INJURY. SHE IS C/O SOME LOW BACK PAIN AT THIS TIME. WHEN HER THIRD BAG OF IVF COMPLETED SPOKE TO DR NG AND SHE DC'D THE IVF AT THAT TIME. IV IS SL AT THIS TIME.
[2021-07-04 04:48] LABS: BASOPHILS ABSOLUTE AUTO 0.04 K/mm3 (0.00-0.23); BASOPHILS PERCENT AUTO 0 % (0-2); EOSINOPHILS ABSOLUTE AUTO 0.37 K/mm3 (0.00-0.68); EOSINOPHILS PERCENT AUTO 3 % (0-6); Hematocrit 37.1 % (33.0-51.0); Hemoglobin 11.8 g/dL (11.5-16.0); IMMATURE GRAN PERCENT AUTO 1 % (0-1); LYMPHOCYTES ABSOLUTE AUTO 5.11 K/mm3 (0.84-5.20); LYMPHOCYTES PERCENT AUTO 43 % (21-46); MONOCYTES ABSOLUTE AUTO 1.38 K/mm3 (0.16-1.47); MONOCYTES PERCENT AUTO 12 % (4-13); Mean Corpuscular HGB Conc 31.8 g/dL (31.5-36.5); Mean Corpuscular Volume 94 fL (80-100); Mean Platelet Volume 11.7 fL (9.1-12.4); NEUTROPHILS ABSOLUTE AUTO 4.95 K/mm3 (1.96-9.15); NEUTROPHILS PERCENT AUTO 42 % (41-73); Platelet Count 287 K/mm3 (150-400); RDW Coefficient Variation 14.5 % (11.7-14.2); Red Blood Cell Count 3.93 M/mm3 (3.80-5.20); White Blood Cell Count 11.95 K/mm3 (4.00-11.30)
[2021-07-04 05:04] LABS: Albumin, Blood 2.9 g/dL (3.4-5.0); Anion Gap 8 mmol/L (6-16); Blood Urea Nitrogen 33 mg/dL (8-24); Bun/Creatinine Ratio 30.3 (12.0-20.0); CO2, Blood 31 mmol/L (21-32); Calcium, Blood 9.6 mg/dL (8.5-10.1); Chloride, Blood 103 mmol/L (98-108); Creatinine, Blood 1.09 mg/dL (0.40-1.00); Glomerular Filtration Rate 52 (60-); Glucose, Blood 103 mg/dL (70-99); Phosphorus, Blood 3.8 mg/dL (2.5-4.9); Potassium, Blood 3.6 mmol/L (3.5-5.5); Sodium, Blood 142 mmol/L (136-145)
--- NOTE | 2021-07-04 17:40 | NUR ---
SHIFT SUMMARY PATIENT REMAINS IN RESTRAINT VEST. ALERT TO SELF AND TIME. FOLLOWS SIMPLE COMMANDS, ABLE TO TAKE MEDICATIONS. PT STILL PERIODICALLY ATTEMPTING TO GET OUT OF BED. NO ACUTE CHANGES DURING SHIFT. TABLE PLACED NEAR BED, CALL HU WITHIN REACH. WILL CONTINUE TO MONITOR.
--- NOTE | 2021-07-05 15:15 | NUR ---
75 year old female admitted to the hospital for possible Toxic Metabolic Encephalopathy vs Vascular Dementia. Pt's medical history and comorbidities include Afib, Chronic Pacreatitis, CKD3, CVA, Pulmonary HTN, Gangrene of R Toe S/P Amputation, and Osteoporosis. Spoke with Irma from PT who reports Pt is not progresssing with therapy with concerns of Failure to Thrive. Spoke with Primary RN Mary and discussed case. Pt has moments where she is more orientated and moments with confusion. Pt requires assistance with bathing, dressing, transfers, ambulation, feeding, and is incontinent of bladder. Pt resting in bed and is A&OX2. Pt unable to verbalize type of building, reason for hospital stay, and states the current year is 2001. Pt reports no pain if not moving but has significant pain with anytype of movement. Engaged in therapeutic listening as Pt reports having no children and is . When discussing the importance of appointing a healthcare proxy Pt states her decision maker is her . Discussed further regarding appointing someone alive she states a friend. She states "but don't call her she is worse than I am", "she has had a stroke". Pt appears to struggle with moderate to complex decision making. Pt has poor insight and low level of understanding. Callend and left message with caregiver listed with request for a return phone call. Unable to get through to friend listed on face sheet due to current hospital wide phone issues. Called Dr Cm's office and spoke with staff. No NOK listed. Staff will fax copy of Pt's POLST. Pt's wishes are CPR and Full Treatment. Palliative Care will remain available for supportive and therapeutic visits. PPS 40% ADLs 6/6 FAST 6E
--- NOTE | 2021-07-05 19:43 | NUR ---
SHIFT SUMMARY- PT ALERT AND ORIENTED TO SELF. PT C/O LEFT RIB PAIN TODAY AND WAS MEDICATED PRN WHEN SHE WAS MORE AWAKE THIS EVENING. PT ATE WELL FOR ALL THREE MEALS WHEN STAFF FED HER. CHEST XRAY DONE TODAY OF THE LEFT RIBS THAT SHOWS A DISPLACED RIB Fx. DR NG AWARE. STAFF SHOULD BE AWARE WHEN PLACING THE GAIT BELT. PT IS GUARDING THAT SIDE. PT IN BED AND STARTING TO RAMP UP AND GET A BIT MORE IRRITABLE. RAUL STEPHENST WAS DC'D TODAY, PT HAS BEEN PLEASENTLY CONFUSED AND SLEEPY ALL SHIFT. BP'S WERE A LOT LOWER THAN PREVIOUS DAYS, SPOKE TO DR NG AND SHE WAS OK WITH HOLDING THE NEW DOSE OF COZAAR TODAY, ALL VSS ONLY HIGH THIS EVENING WHEN THE PT WAS UP AT THE EOB AND C/O LEFT RIB PAIN.
--- NOTE | 2021-07-06 06:43 | NUR ---
SHIFT SUMMARY PT IS A 75 Y/O FEMALE, ADMITTED FOR TOXIC METABOLIC ENCEPHALOPATHY. SHE IS A&O X SELF ONLY, IRRITABLE WITH STAFF AT TIMES AND REFUSES TURNING. NO C/O ACUTE PAIN, NAUSEA OR SOB. VITAL SIGNS STABLE. NO OTHER ACUTE CHANGES IN PT CONDITION NOTED DURING THE NIGHT. WILL CONTINUE TO MONITOR AND TREAT PER EMAR UNTIL HAND OFF TO DAY SHIFT RN.
--- NOTE | 2021-07-06 15:52 | NUR ---
Supportive visit this afternoon. Pt resting with her eyes closed. Pt does not wake to gentle verbal stimuli. Pt appears comfortable with no S/S of distress at this time. Spoke with Primary RN Vesta and discussed case. Pt has been difficult to arouse today. Pt was medicated for pain once earlier this AM. Attempted to call contacts listed on facesheet. Left message with both voicemails with request for a return phone call. Palliative Care will remain available.
--- NOTE | 2021-07-06 17:50 | NUR ---
SHIFT SUMMARY 75 FEMALE ADMITTED W/ TOXIC METABOLIC ENCEPHALOPATHY. PT HAS BEEN A&O, PLEASANT AND COOPERATIVE THIS SHIFT DURING SIMPLE CONVERSATIONS BUT DOES NOT ANSWER APPROPRIATELY DURING COMPLEX CONVERSATIONS REGARDING DISCHARGE PLANNING. PT HAD FALL PREVIOUSLY AND HAS FX RIB W/ C/O PAIN THAT IS MODERATLY MANAGED WITH NORCO. PT LIVES AT HOME ALONE WITH CAREGIVER VISIT 3X WEEKLY. ADVANCED D/C PLANNING NEEDED AND PT WILL LIKELY NEED LTC/MEMORY CARE PLACEMEMT. NO OTHER CHANGES THIS SHIFT.
--- NOTE | 2021-07-07 06:41 | NUR ---
SHIFT SUMMARY PT IS A 75 Y/O FEMALE, ADMITTED FOR TOXIC METABOLIC ENCEPHALOPATHY. SHE IS A&O X SELF AND PLACE, THOUGH MORE CONFUSED AT NIGHT, OCCASIONALLY REFUSES CARE OR TURNING. MEDICATED FOR LOWER BACK PAIN WITH PRN NORCO. VITAL SIGNS STABLE. PT SLEPT WELL THROUGH THE NIGHT. NO ACUTE CHANGES IN PT CONDITION NOTED DURING THE NIGHT. WILL CONTINUE TO MONITOR AND TREAT PER EMAR UNTIL HAND OFF TO DAY SHIFT RN.
--- NOTE | 2021-07-07 18:13 | NUR ---
SHIFT SUMMARY PT HAS BEEN RESTING IN HER ROOM THROUGHOUT THE SHIFT. PT MEDICATED PER EMAR. PT REPORTING PAIN IN HER R LATERAL CHEST WALL FROM PRIOR INJURY. PT'S PAIN TREATED W/ NORCO. PT HAS BEEN ABLE TO STAND AND ROTATE TO THE BEDSIDE COMMODE W/ 1 PERSON ASSIST. PT RESTING IN HER ROOM AT THIS TIME. HAS NOT SHOWN INTEREST IN HER DINNER TRAY, OPTING TO REST. WILL CONTINUE TO MONITOR AND UPDATE NECESSARY.
--- NOTE | 2021-07-08 07:19 | NUR ---
PT A. CONFUSED. HALLUCINATIONS.MECHANICAL SOFT DIET. PILLS IN APPLE SAUCE. INCONTINENT OF URINE/BOWEL. NO BM THIS SHIFT. V/S WNL. NO IV ACCESS. PRN NORCO GIVEN FOR PAIN PER EMAR. WILL CONTINUE TO MONITOR.
--- NOTE | 2021-07-08 18:08 | NUR ---
SHIFT SUMMARY PT RESTING QUIETLY AT START OF SHIFT. WOKE EASILY FOR CARE. EATING AND DRINKING WELL. OOB SETTING BED ALARM OFF WANTING TO GO TO BTHRM. PT ASSISTED TO BSC, BUT ALSO ALREADY INCONTINENT. PT LATER UP TO BTHRM WITH STOCK RECEIVER. DR CHAN HERE TO SEE PT THIS AM. PLAN IS FOR RESIDENTIAL CARE WHEN AVAILABLE. PT MEDICATED PER EMAR FOR C/O RIB PAIN. SCHEDULED TYLENOL STARTED AND HAS SEEMED TO KEEP PT'S PAIN LEVEL MORE TOLERABLE. PT ABLE TO WALK IN HALLS WITH P/T TODAY USING FWW WITH GB AND SBA. PT DOING VERY WELL. PT HAS BEEN VERY PLEASANT AND CO-OP WITH CARE. BED AND TAB ALARM ON FOR SAFETY. CALL LT IN REACH.
--- NOTE | 2021-07-08 18:50 | NUR ---
PT WAS INCONTIENT AND WANTING TO GET OUT OF BED TO USE BEDSIDE CAMMODE. PT IS OCCIASIONALLY CONFUSED WITH AUDITORY AND VISUAL HALLUCINATION. PT HAS COMPLAINED OF PAIN IN HER RIBS. DR. CHAN ORDERED ACETAMINOPHEN 650MG Q8H FOR PAIN. PT STATED PAIN MEDICATION IS DECREASING HER PAIN. PT AMBULATED IN THE HALLWAY WITH PT. PT CAN TRANSFERRED WITH 1 PERSEON ASSIST WITH A FWW AND GAIT BELT. PT HAS BEEN EATING WELL FOR ALL MEALS WITH ASSISTANCE. PT IS RESTING IN BED WITH CALL LIGHT WITHIN REACH.
--- NOTE | 2021-07-09 04:58 | NUR ---
PT A & O TO SELF. V/S WNL. NO IV ACCESS. 1-2 ASSIST. INCONTINENT OF URINE/BOWEL AT TIMES. PT PLEASANTLY CONFUSED THIS NIGHT. PRN NORCO GIVEN FOR PAIN PER EMAR. MECHANICAL SOFT DIET. PILLS WHOLE IN APPLE SAUCE. WILL CONTINUE TO MONITOR.
--- NOTE | 2021-07-09 14:40 | NUR ---
SHIFT SUMMARY PT RESTING QUIETLY DURING SHIFT REPORT AND VERY SLEEPY FOR BREAKFAST. PT EVENTUALLY WOKE ENOUGH TO EAT, BUT ATE MUCH MORE SLOWLY TODAY. PT HAS SLEPT MORE TODAY THAN YESTERDAY AND A RESULT, HAS NOT BEEN TALKATIVE TODAY. PT HAS NOT C/O PAIN MUCH TODAY EITHER. PAIN LEVEL SEEMS MUCH MORE MANAGED WITH SCHEDULED TYLENOL. BED ALARM AND TAB ALARM ON FOR SAFETY. CALL LT IN REACH.
--- NOTE | 2021-07-09 17:58 | NUR ---
PT ALSEEP AT THE START OF THE SHIFT. PT WAS DIFFCULT TO AROUSE, BUT PT WAS PLEASANT. PT TOOK MEDICATIONS WHOLE WITH APLLESAUCE. PT ATE ALL MEALS ADEQUATELY WITH ASSISTANCE. PT RECEVIED A SHOWER, PT AMBULATED TO THE BATHROOM WITH FWW AND 1 PERSON ASSIST. PT BP HAS BEEN CONTROLLED WITH MEDICATIONS AND STABLE THROUGHOUT SHIFT. PT WAITING ON PLACEMENT FOR DISCHARGE. PT RESTING IN BED WITH CALL LIGHT WITHIN REACH.
--- NOTE | 2021-07-10 04:08 | NUR ---
PT A & O TO SELF/PLACE. CONFUSED AND NONSENSICAL. HALLUCINATIONS AT TIMES. PLEASANT AND COOPERATIVE. FULL CODE. MECHANICAL SOFT DIET. PILLS WHOLE IN APPLE SAUCE. V/S WNL. NO IV. 1-ASSIST. PRN NORCO GIVEN FOR PAIN PER EMAR. INCONTINENT OF URINE AT TIMES. WILL CONTINUE TO MONITOR.
[2021-07-10 05:13] LABS: BASOPHILS ABSOLUTE AUTO 0.02 K/mm3 (0.00-0.23); BASOPHILS PERCENT AUTO 0 % (0-2); EOSINOPHILS ABSOLUTE AUTO 0.26 K/mm3 (0.00-0.68); EOSINOPHILS PERCENT AUTO 3 % (0-6); Hematocrit 35.7 % (33.0-51.0); Hemoglobin 10.7 g/dL (11.5-16.0); IMMATURE GRAN ABSOLUTE AUTO 0.03 K/mm3 (0.00-0.10); IMMATURE GRAN PERCENT AUTO 0 % (0-1); LYMPHOCYTES ABSOLUTE AUTO 4.74 K/mm3 (0.84-5.20); LYMPHOCYTES PERCENT AUTO 45 % (21-46); MONOCYTES ABSOLUTE AUTO 1.45 K/mm3 (0.16-1.47); MONOCYTES PERCENT AUTO 14 % (4-13); Mean Corpuscular HGB 29.3 pg (26.0-34.0); Mean Corpuscular Volume 98 fL (80-100); NEUTROPHILS ABSOLUTE AUTO 4.06 K/mm3 (1.96-9.15); NEUTROPHILS PERCENT AUTO 38 % (41-73); Platelet Count 357 K/mm3 (150-400); RDW Coefficient Variation 14.6 % (11.7-14.2); RDW Standard Deviation 52.3 fL (35.1-46.3); Red Blood Cell Count 3.65 M/mm3 (3.80-5.20); White Blood Cell Count 10.56 K/mm3 (4.00-11.30)
[2021-07-10 05:53] LABS: Bun/Creatinine Ratio 56.6 (12.0-20.0); Calcium, Blood 9.4 mg/dL (8.5-10.1); Creatinine, Blood 1.66 mg/dL (0.40-1.00); Potassium, Blood 4.9 mmol/L (3.5-5.5)
--- NOTE | 2021-07-10 14:52 | NUR ---
Supportive visit this afternoon. Pt resting in bed with her eyes closed. Pt wakes to gentle verbal stimuli. Pt denies pain and dyspnea at this time. Pt is able to answer orientation questions correctly but does engage in some nonsenical conversation. When asked about sibblings Pt states "they at ", when asked about nieces or nephew Pt states "they ". Pt is pleasant and reports no concerns at this time. Spoke with ALEX Vuong. Carolann reports Pt requires assistance with bathing, dressing and experiences occasion incontinence. Pt requires assistance with ambulation and feeding. Received message from Pt's friend Lida returning this RNs phone call. Attemtped to contact Lida and left message on voicidil with request for a return phone call. Palliative Care will remain available.
--- NOTE | 2021-07-10 15:57 | NUR ---
Received call back from Pt's friend Lida who is listed as signs and displays salesperson. Provided update on plan of care. Lida reports she does not feel that she knows Pt well enough to make decisions for Pt. She reports knowing Pt for 10 years but has never discussed wishes regarding medical care. Lida reports Pt has a friend Neal who has assisted Pt to appointments and will attempt to gather her contact information and ask her to call.
--- NOTE | 2021-07-10 18:26 | NUR ---
DAYSHIFT SUMMARY Pt doing well this shift, worked with therapy today. Oriented to self, disoriented x2. Pt supervised feeder, requires meals encouragement. Pt c/o rib pain, hydrocodone PRN given, PRN effective for pain. Vitals stable, no other concerns at this time. Awaiting placement.
--- NOTE | 2021-07-11 06:16 | NUR ---
SHIFT SUMMARY PT A/O X 3 AT START OF SHIFT. SLEEPY BUT WOKE EASILY AND ANSWERED QUESTIONS APPROPRIATELY. PT BECAME MORE CONFUSED THE NIGHT WENT ON. WOKE AT APPROX 0300 REPORTING THAT SHE HAD TO VOID. PROFESSOR OF SOCIAL WORK ATTEMPTED TO GET HER UP BUT SHE WAS TOO PAINFUL AT THE TIME AND VOIDED IN HER BRIEF. PROFESSOR OF SOCIAL WORK INFORMED PT THAT HE WAS GOING TO CHANGE HER BRIEF AND PT AGREED. WHEN PROFESSOR OF SOCIAL WORK TOOK HER BRIEF OFF PT BEGAN YELLING, "HELP, RAPE!". PROFESSOR OF SOCIAL WORK CALLED THIS RN TO ROOM. PT CONTINUED TO YELL AND WAS VERY CONFUSED. STATING THAT SHE WAS AT THE PARK. IT TOOK QUITE SOME TIME TO CALM PT. MEDICATED W/ 1 TAB NORCO FOR RIB PAIN. ORDER FOR INFUSION OF 1 BAG OF NS ON EMAR ORDERED AT 0800. PT WITH NO IV. NEW IV PLACED TO RFA AND NS TRANSFUSING. PT CONTINUES TO AWAIT MEMORY CARE PLACEMENT. VITAL SIGNS STABLE.
[2021-07-11 08:55] LABS: Bun/Creatinine Ratio 57.9 (12.0-20.0); Calcium, Blood 9.8 mg/dL (8.5-10.1); Creatinine, Blood 1.33 mg/dL (0.40-1.00); Potassium, Blood 4.7 mmol/L (3.5-5.5)
--- NOTE | 2021-07-11 18:20 | NUR ---
DAYSHIFT SUMMARY Pt doing well this shift, evaluated by OT/PT & SPECIAL NEEDS LIBRARIAN. SPECIAL NEEDS LIBRARIAN encouraged staff to let pt fed herself, with redirection. Pt worked with therapy, walked down the vela, doing well. Tired after therapy, and reported severe rib pain. PRN Hydrocodone & scheduled tylenol given, PRNs effective. Vitals stable.
--- NOTE | 2021-07-12 04:59 | NUR ---
PT IS FORGETFUL WITH INTERMITTANT CONFUSION, MEDICATED FOR RIB PAIN THIS SHIFT FROM PREVIOUS FALL. BED ALARM ON FOR SAFETY. PO MEDS GIVEN WITH APPLESAUCE. PT REQUIRES 1 PERSON ASSIST TO RESTROOM, INCONTINENT AT TIMES.
--- NOTE | 2021-07-12 16:40 | NUR ---
DAYSHIFT SUMMARY Pt pleasant & cooperative. OOB for meals, worked with therapy. Ambulating to BR with FWW & staff SBA. Medicated 2x Hydrocodone for rib pain, PRN effective. Pt fed self w/ direction by staff. No acute changes to pt status, awaiting placement. Vitals stable.
--- NOTE | 2021-07-13 05:45 | NUR ---
PT IS PLEASANTLY CONFUSED, INCONTINENT OF URINE THIS SHIFT, MEDS GIVEN WITH APPLESAUCE.
[2021-07-13 06:01] LABS: Bun/Creatinine Ratio 45.7 (12.0-20.0); Calcium, Blood 10.4 mg/dL (8.5-10.1); Creatinine, Blood 1.16 mg/dL (0.40-1.00); Potassium, Blood 5.4 mmol/L (3.5-5.5)
--- NOTE | 2021-07-13 16:40 | NUR ---
SHIFT SUMMARY PT RESTING QUIETLY AT START OF SHIFT. WOKE EASILY FOR CARE. VERY PLEASANT AND CO-OP. PT EATING WELL FOR BREAKFAST AND LUNCH SO FAR TODAY. PT HAS BEEN AWAKE MORE TODAY AND TALKATIVE. UP TO BSC TO VOID AND HAVE BM; STOOL VERY HARD ROSHNI. BOWEL CARE ORDERED AND GIVEN. PT UP TO BSC AGAIN LATER TO VOID AND TRYING TO HAVE BM. PT CONTINUES TO WAIT FOR PLACEMENT. NO C/O. BED ALARM AND TAB ALARM BOTH ON FOR SAFETY. CALL LT IN REACH.
--- NOTE | 2021-07-13 17:56 | NUR ---
PT SLEEP AT THE BEGINNING OF THE SHIFT. PT WAS AROUSABLE FOR MEDICATION ADMISTRATION AND BREAKFAST. PT BP AT THE BEGINNING OF THE SHIFT 198/103, HR 84. PT WAS GIVEN SCHEDULED BP MEDICATION, BP REASSESSED WAS 127/83. PT PAIN IS BEING MANAGED WITH TYLENOL 1,000 MG Q8H. PT STATED SHE WAS CONSTIPATED, PT TRANSFERRED TO THE BEDSIDE CAMMODE. PT HAD A SMALL HARD PELLET STOOL. DR. CHAN ORDERED BOWEL CARE, PT GIVEN [place]OT 8.6 MG. PT IS RESTING IN BED WITH CALL LIGHT WITHIN REACH. PT IS WAITING ON PLACEMENT.
--- NOTE | 2021-07-14 05:50 | NUR ---
PT IS PLEASANTLY CONFUSED WITH BOUTS OF CLARITY, CONTINENT/INCONTINENT; TAKES PILLS WITH APPLESAUCE. 1-ASSIST TO RESTROOM.
--- NOTE | 2021-07-14 14:51 | NUR ---
SHIFT SUMMARY NO ACUTE CHANGES TO PRESENT THIS SHIFT. PT RESTING QUIETLY AT START OF SHIFT. WOKE EASILY FOR CARE. UP TO BTHRM TO VOID USING FWW AND SBA. PT'S MOBILITY IMPROVING. PT EATING AND DRINKING WELL. RIB PAIN CONTINUES TO BE DECREASED EACH DAY. PT IS VERY PLEASANT AND CO-OP. BED AND TAB ALARM ON FOR SAFETY. CALL LT IN REACH.
--- NOTE | 2021-07-14 17:30 | NUR ---
PT WAS UP AND TRANSFERRED TO THE BATHROOM, 1P ASSIST WITH FWW AND GB. PT TRANSFERRD BACK TO BED WITH NO COMPLICATIONS. PT STATED FEELING FULL AND UNABLE TO HAVE A BOWEL MOVEMENT. PT GIVEN BOWEL CARE PER EMAR PROTOCOL. PT ATE ALL MEAL ADEQUATELY WITH ASSISTANCE. PT IS PLEASANT AND ORIENTATED THROUGHOUT THE SHIFT. PT BP WAS ELEVATED BUT STABLE THROUGHOUT SHIFT. PT REUQESTED TO USE BATHROOM TO HAVE A BOWEL MOVEMENT BUT WAS UNSUCCESSFUL. DR. CHAN ORDERED ONE TIME DOSE OF GLYCERIN SUPPOSETORY. PT HAS BEEN HAPPT AND RESTING THROUGHOUT SHIFT. CALL LIGHT WITHIN REACH.
--- NOTE | 2021-07-15 05:04 | NUR ---
PT IS PLEASANTLY CONFUSED WITH MOMENTS OF CLARITY, CONTINENT/INCONTINENT, TAKES PO MEDS WITH APPLESAUCE. DISCAHRAGE PLACEMENT NEEDED. 1-ASSIST TO RESTROOM.
--- NOTE | 2021-07-15 14:10 | NUR ---
SHIFT SUMMARY NO ACUTE CHANGES TO PRESENT THIS SHIFT. PT CONTINUES TO IMPROVE IN MOBILTIY AND ALERTNESS. VERY TALKATIVE WHEN AWAKE. UP TO SHOWER AGAIN TODAY. UP TO CHAIR FOR MEALS. CALLS TO GO TO BTM OR ASK'S WHEN STAFF IS IN RM, THOUGH STILL INCONTINENT WHEN WAKING FROM NAP. CONTINENT WHEN AWAKE. PAIN IN RIBS CONTINUES TO IMPROVE SLOWLY EACH DAY. TYLENOL SEEMS TO BE EFFECTIVE FOR MANAGING. CO-OP WITH P/T TODAY. BED ALARM AND TAB ALARM ON FOR SAFETY. CALL LT IN REACH.
--- NOTE | 2021-07-16 04:55 | NUR ---
SHIFT SUMMARY 75 YR F ADMITTED ON 06/30/21. FULL CODE. PT IS PLEASANTLY CONFUSED AND VERY FRIENDLY. SHE SLEPT MOST OF THIS SHIFT SO THIS NURSE DID NOT HAVE ALOT OF INTERACTION W/ HER. MEDS TAKED WHOLE W/ APPLESAUCEPT APPEARS TO BE MEDICALLY STABLE AND IS CURRENTLY WAITING FOR HALF-WAY PLACEMENT. 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 VITALS ARE STABLE.
[2021-07-16 05:32] LABS: Bun/Creatinine Ratio 36.6 (12.0-20.0); Calcium, Blood 9.1 mg/dL (8.5-10.1); Creatinine, Blood 1.31 mg/dL (0.40-1.00); Potassium, Blood 4.2 mmol/L (3.5-5.5)
--- NOTE | 2021-07-16 16:21 | NUR ---
DAYSHIFT SUMMARY Pt doing well today, continues to report rib pain. MD DILLON'modesta hydrocodone, Tylenol scheduled for pain control. Tylenol effective for pain management, PT reported that she was more alert and participated during therapy today. Walked halls with OT/PT, napped in bed between meals. Medium formed BM this shift. No acute changes to pt status, awaiting placement.
--- NOTE | 2021-07-17 04:20 | NUR ---
SHIFT SUMMARY ADMITTED FOR AMS. FULL CODE. PLAN IS FOR SNF/REHAB. PHYSICAL & OCCUPATIONAL THERAPIES ARE WORKING WITH THIS PT. 1 ASSIST TO BSC. SHE IS ON RA. RX GIVEN ONE AT A TIME W/SAUCE. A&O X3-4. CONTINENT/INCONTINENT. MECHANICAL SOFT DIET. SHE IS ON ELIQUIS HERE. SHE IS FRAIL.
[2021-07-17] MEDS ORDERED: CARV6.25 PO (12:13)
[2021-07-17] MEDS ORDERED: HYDRA50 PO (12:14)
[2021-07-17] MEDS ORDERED: DOCU100 PO (12:14)
[2021-07-17] MEDS ORDERED: MIRT15ST PO (12:14)
[2021-07-17] MEDS ORDERED: OLAN5 PO (12:15)
[2021-07-17 12:38] LABS: SARS-Cov-2 (COVID-19) PCR, MMC NEGATIVE (NEGATIVE)
--- NOTE | 2021-07-17 14:57 | NUR ---
sutures removed- PATIENT HAD STITCHES IN PLACE RIGHT FOOT 4TH TOE, SINCE MAY (PER PATIENT). DOCTOR WAS NOTIFIED AND APPROVED REMOVAL. ALL STITCHES WERE TAKEN OUT. SKIN LOOKS HEALTHY UNDER- IODINE APPLIED AFTERWARD.
--- NOTE | 2021-07-17 16:13 | NUR ---
DISCHARE- 1610 PATIENT WAS DISCHARGED TO [facility]. IV WAS DISCONTINUED BEFORE LEAVING. THE PAPERWORK WAS SENT WITH THE TRANPORTING SOUND RECORDIST. PATIENT WAS SENT WITH ITEMS FROM HER ROOM, INCLUDING HER GLASSES. PATIENT WAS TEARY AND HUGGING STAFF SHE WAS LEAVING. [facility] WAS CALLED TWICE SO THIS MARBLE WORKER COULD GIVE REPORT. THE FIRST TIME, THEY SAID SOMEONE WOULD CALL ME BACK BUT NO ONE DID. I CALLED AGAIN AND WAS TRANSFERED TO A PHONE WITHOUT AN ANSWER.
== END 2021-07-17 16:32 | DRG 91 ==
LOC: ER 10:23 → MEDS 16:24
PROVIDERS: Emergency Medicine; Internal Medicine; Nurse Practitioner Acute Care; ADMIT Internal Medicine
DX: G92.8 Other toxic encephalopathy (principal); E43 Unspecified severe protein-calorie malnutrition; K86.1 Other chronic pancreatitis; Z68.1 Body mass index [BMI] 19.9 or less, adult; I67.4 Hypertensive encephalopathy; M80.0AXA Age-related osteoporosis with current pathological fracture, other site, initial encounter for fracture; F01.50 Vascular dementia, unspecified severity, without behavioral disturbance, psychotic disturbance, mood disturbance, and anxiety; N28.9 Disorder of kidney and ureter, unspecified; Z20.822 Contact with and (suspected) exposure to COVID-19; Z51.5 Encounter for palliative care; I73.9 Peripheral vascular disease, unspecified; E78.00 Pure hypercholesterolemia, unspecified; I27.20 Pulmonary hypertension, unspecified; I48.91 Unspecified atrial fibrillation; E03.9 Hypothyroidism, unspecified; E78.5 Hyperlipidemia, unspecified; R07.81 Pleurodynia; K21.9 Gastro-esophageal reflux disease without esophagitis; F41.1 Generalized anxiety disorder; T40.605A Adverse effect of unspecified narcotics, initial encounter; I12.9 Hypertensive chronic kidney disease with stage 1 through stage 4 chronic kidney disease, or unspecified chronic kidney disease; N18.30 Chronic kidney disease, stage 3 unspecified; Z87.442 Personal history of urinary calculi; I25.2 Old myocardial infarction; Z89.421 Acquired absence of other right toe(s); Z89.422 Acquired absence of other left toe(s); Z98.890 Other specified postprocedural states; Z88.0 Allergy status to penicillin; Z88.1 Allergy status to other antibiotic agents; Z88.2 Allergy status to sulfonamides; Z88.8 Allergy status to other drugs, medicaments and biological substances; Z79.01 Long term (current) use of anticoagulants; Z79.899 Other long term (current) drug therapy; W06.XXXA Fall from bed, initial encounter; Y92.230 Patient room in hospital as the place of occurrence of the external cause
CPT/HCPCS: 36415; 51701; 70450; 71101; 80048; 80053; 80069; 81001; 85025; 93005; 93010; 96374-59; 97110; 97116; 97116-CQ; 97161; 97166; 97530; 97530-CQ; 97535; 99285-25; A9270; G0378; J7030; U0004

== ENCOUNTER → 2021-07-31 | Outpatient (CLI) | payer OTHER | END | disposition home or self-care (01) | LOC: LAB UVN 18:15 | DX: D64.9 Anemia, unspecified (principal) ==

== ENCOUNTER → 2021-08-05 | Outpatient (CLI) | payer OTHER ==
[~2021-08-05] MED LIST changes: +ALPHA GALACTOSIDASE PO; +CARV6.25 PO; +DOCU100 PO; +HYDRA50 PO; +MIRT15ST PO; +OLAN5 PO
[2021-08-06 07:15] LABS: Stool Occult Bld Immuno 1 Negative (NEGATIVE)
== END | disposition home or self-care (01) ==
LOC: EDSTATUS 11:20 → LAB UVN 14:11
PROVIDERS: Internal Medicine
DX: D64.9 Anemia, unspecified (principal)
CPT/HCPCS: 82274

== ENCOUNTER → 2021-08-06 | Outpatient (CLI) | payer OTHER ==
[2021-08-06 06:41] LABS: BASOPHILS ABSOLUTE AUTO 0.02 K/mm3 (0.00-0.23); BASOPHILS PERCENT AUTO 0 % (0-2); EOSINOPHILS PERCENT AUTO 3 % (0-6); Hematocrit 33.4 % (33.0-51.0); Hemoglobin 10.5 g/dL (11.5-16.0); IMMATURE GRAN ABSOLUTE AUTO 0.02 K/mm3 (0.00-0.10); IMMATURE GRAN PERCENT AUTO 0 % (0-1); LYMPHOCYTES ABSOLUTE AUTO 3.78 K/mm3 (0.84-5.20); LYMPHOCYTES PERCENT AUTO 43 % (21-46); MONOCYTES ABSOLUTE AUTO 1.41 K/mm3 (0.16-1.47); MONOCYTES PERCENT AUTO 16 % (4-13); Mean Corpuscular HGB 28.9 pg (26.0-34.0); Mean Corpuscular HGB Conc 31.4 g/dL (31.5-36.5); Mean Corpuscular Volume 92 fL (80-100); Mean Platelet Volume 10.6 fL (9.1-12.4); NEUTROPHILS ABSOLUTE AUTO 3.26 K/mm3 (1.96-9.15); NEUTROPHILS PERCENT AUTO 37 % (41-73); Platelet Count 369 K/mm3 (150-400); RDW Standard Deviation 47.5 fL (35.1-46.3); RETICULOCYTE ABSOLUTE 0.0428 M/mm3 (0.0200-0.1100); RETICULOCYTE COUNT PERCENT 1.18 % (0.50-2.50); Red Blood Cell Count 3.63 M/mm3 (3.80-5.20); White Blood Cell Count 8.79 K/mm3 (4.00-11.30)
[2021-08-06 07:18] LABS: Bun/Creatinine Ratio 24.6 (12.0-20.0); Calcium, Blood 9.2 mg/dL (8.5-10.1); Creatinine, Blood 1.14 mg/dL (0.40-1.00); Percent Saturation 14.1 % (15.0-50.0); Potassium, Blood 4.3 mmol/L (3.5-5.5)
== END | disposition home or self-care (01) ==
LOC: LAB UVN 05:13 → EDSTATUS 11:22
PROVIDERS: Internal Medicine
DX: D64.9 Anemia, unspecified (principal)
CPT/HCPCS: 80048; 82607; 82668; 82728; 82746; 83010; 83540; 83550; 85025; 85045

== ENCOUNTER → 2021-08-10 | Outpatient (CLI) | payer OTHER ==
[2021-08-11 09:11] LABS: Stool Occult Blood Guaiac 1 Neg (Neg)
== END | disposition home or self-care (01) ==
LOC: EDSTATUS 11:21 → LAB UVN 12:50
PROVIDERS: Internal Medicine
DX: D64.9 Anemia, unspecified (principal)
CPT/HCPCS: 82270

== ENCOUNTER 2021-09-26 16:52 | Emergency (ER) | payer OTHER ==
[~2021-09-26] VITALS: Ht 134.6 cm; Wt 34.0 kg
[2021-09-26 18:11] LABS: Influenza A, PCR NEGATIVE (NEGATIVE); Influenza B, PCR NEGATIVE (NEGATIVE); Resp Syncytial Virus, PCR NEGATIVE (NEGATIVE); SARS-Cov-2 (COVID-19) PCR, MMC NEGATIVE (NEGATIVE)
== END 2021-09-26 21:43 | disposition home or self-care (01) ==
LOC: ER 16:52
PROVIDERS: Student in an Organized Health Care Education/Training Program
DX: J06.9 Acute upper respiratory infection, unspecified (principal); I10 Essential (primary) hypertension; Z20.822 Contact with and (suspected) exposure to COVID-19; Z88.0 Allergy status to penicillin; Z88.2 Allergy status to sulfonamides; Z88.1 Allergy status to other antibiotic agents; Z88.8 Allergy status to other drugs, medicaments and biological substances; Z79.01 Long term (current) use of anticoagulants; Z79.899 Other long term (current) drug therapy
CPT/HCPCS: 0241U; 99283

== ENCOUNTER → 2022-02-19 | Outpatient (CLI) | payer OTHER ==
[~2022-02-19] MED LIST changes: +DORZOLAMIDE-TIM10 ML BOTHEYES; +LATANOPROST2.5 M3 BOTHEYES; +LEVFLO500 PO; +Q-Tussin100 MG/5 M PO
[2022-02-19 10:13] LABS: Source, Urine Clean Catch
[2022-02-19 11:55] LABS: Appearance, Urine Clear (Clear); Bilirubin, Urine Neg (Neg); Blood, Urine Neg (Neg); Color, Urine Yellow (P-Yellow); Glucose Qualitative, Urine Neg (Neg); Ketones, Urine Neg (Neg); Leukocyte Esterase, Urine 1+ (Neg); Nitrite, Urine Neg (Neg); Protein, Urine 1+ (Neg); Urobilinogen, Urine NORM (Normal)
[2022-02-19 11:58] LABS: Red Blood Cells, Urine 0-2 /hpf (0-2); Squamous Epithelial Cells Rare /hpf (Few)
[2022-02-19 11:59] LABS: Bacteria Few /hpf
[2022-02-19 14:04] LABS: Creatinine, Urine Random 83.7 mg/dL (27.00-270.00); Protein, Urine Random 9.6 mg/dL (0.0-11.9); Protein/Creat Ratio, Ur Random 0.1
== END ==
LOC: LAB UVN 10:12 → EDSTATUS 14:32
PROVIDERS: Internal Medicine
DX: N39.0 Urinary tract infection, site not specified (principal); N18.30 Chronic kidney disease, stage 3 unspecified
CPT/HCPCS: 81001; 82570; 84156; 87086

== ENCOUNTER 2022-05-10 09:28 | Inpatient (IN) | payer OTHER ==
[~2022-05-10] VITALS: Ht 154.9 cm; Wt 33.1 kg
[~2022-05-10 09:28] MED LIST changes: -DORZOLAMIDE-TIM10 ML BOTHEYES; -LATANOPROST2.5 M3 BOTHEYES; -Q-Tussin100 MG/5 M PO
[2022-05-10 10:23] LABS: BASOPHILS ABSOLUTE AUTO 0.02 K/mm3 (0.00-0.23); BASOPHILS PERCENT AUTO 0 % (0-2); EOSINOPHILS ABSOLUTE AUTO 0.09 K/mm3 (0.00-0.68); EOSINOPHILS PERCENT AUTO 1 % (0-6); Hematocrit 36.1 % (33.0-51.0); Hemoglobin 11.5 g/dL (11.5-16.0); IMMATURE GRAN ABSOLUTE AUTO 0.05 K/mm3 (0.00-0.10); IMMATURE GRAN PERCENT AUTO 0 % (0-1); LYMPHOCYTES ABSOLUTE AUTO 2.42 K/mm3 (0.84-5.20); LYMPHOCYTES PERCENT AUTO 20 % (21-46); MONOCYTES ABSOLUTE AUTO 0.88 K/mm3 (0.16-1.47); MONOCYTES PERCENT AUTO 7 % (4-13); Mean Corpuscular HGB 29.8 pg (26.0-34.0); Mean Corpuscular HGB Conc 31.9 g/dL (31.5-36.5); Mean Corpuscular Volume 94 fL (80-100); Mean Platelet Volume 10.2 fL (9.1-12.4); NEUTROPHILS ABSOLUTE AUTO 8.66 K/mm3 (1.96-9.15); NEUTROPHILS PERCENT AUTO 71 % (41-73); Platelet Count 300 K/mm3 (150-400); RDW Coefficient Variation 16.6 % (11.7-14.2); RDW Standard Deviation 55.9 fL (35.1-46.3); Red Blood Cell Count 3.86 M/mm3 (3.80-5.20); White Blood Cell Count 12.12 K/mm3 (4.00-11.30)
[2022-05-10 10:45] LABS: Calcium, Blood 8.9 mg/dL (8.5-10.1); Creatinine, Blood 1.22 mg/dL (0.40-1.00); Potassium, Blood 4.2 mmol/L (3.5-5.5)
[2022-05-10] MEDS ORDERED: DORZOLAMIDE-TIM10 ML BOTHEYES (13:27)
[2022-05-10] MEDS ORDERED: LATANOPROST2.5 M3 BOTHEYES (13:27)
[2022-05-10 13:52] LABS: Adenovirus Not Detected (NOT DETECT); Bordetella pertussis Not Detected (NOT DETECT); Chlamydophila pneumoniae Not Detected (NOT DETECT); Coronavirus 229E Not Detected (NOT DETECT); Coronavirus HKU1 Not Detected (NOT DETECT); Coronavirus NL63 Not Detected (NOT DETECT); Coronavirus OC43 Not Detected (NOT DETECT); Human Metapneumovirus Not Detected (NOT DETECT); Human Rhinovirus/Enterovirus Not Detected (NOT DETECT); Influenza A/2009-H1 Not Detected (NOT DETECT); Influenza A/H1 Not Detected (NOT DETECT); Influenza A/H3 Not Detected (NOT DETECT); Influenza B Not Detected (NOT DETECT); Mycoplasma pneumoniae Not Detected (NOT DETECT); Parainfluenza Virus 1 Not Detected (NOT DETECT); Parainfluenza Virus 2 Not Detected (NOT DETECT); Parainfluenza Virus 3 Detected (NOT DETECT); Parainfluenza Virus 4 Not Detected (NOT DETECT); Respiratory Syncytial Virus Not Detected (NOT DETECT); SARS-Cov-2 (COVID-19), BioFire Not Detected (NOT DETECT)
--- NOTE | 2022-05-10 17:11 | NUR ---
SHIFT SUMMARY: ASSUMED CARE OF PATIENT UPON HER ARRIVAL FROM ED AT 1431. TRANSFERRED FROM [facility] TO BED WITH ASSISTANCE. A&O X 2-3, SPEECH IS A LITTLE GARBLED, EDENTULOUS, OMAHA, AND BLIND IN L EYE. WEAKNESS IN ALL EXTREMITIES. IS SEVERELY CACHECTIC. PLACED ON TELEMETRY, AFIB IN 90'S AT REST. BREATH SOUNDS ARE DIM THROUGHOUT, STUDENT SERVICES COUNSELOR COUGH; DECLINED OFFERED GUAFENSIN. ON O2 @ 3 L/MIN NC, ROOM AIR AT BASELINE. DIET CHANGED TO GROUND MEAT/MECH SOFT/CARDIAC. NS BOLUS COMPLETED. DENIES PAIN. SKIN INTACT, WILL PLACE FOAM OVERLAY ON MATTRESS FOR EDVIN SCORE 14.
[2022-05-11 04:46] LABS: BASOPHILS ABSOLUTE AUTO 0.02 K/mm3 (0.00-0.23); BASOPHILS PERCENT AUTO 0 % (0-2); EOSINOPHILS ABSOLUTE AUTO 0.04 K/mm3 (0.00-0.68); EOSINOPHILS PERCENT AUTO 0 % (0-6); Hematocrit 31.3 % (33.0-51.0); IMMATURE GRAN ABSOLUTE AUTO 0.03 K/mm3 (0.00-0.10); IMMATURE GRAN PERCENT AUTO 0 % (0-1); LYMPHOCYTES PERCENT AUTO 23 % (21-46); MONOCYTES ABSOLUTE AUTO 0.93 K/mm3 (0.16-1.47); MONOCYTES PERCENT AUTO 10 % (4-13); Mean Corpuscular HGB 29.7 pg (26.0-34.0); Mean Corpuscular HGB Conc 31.9 g/dL (31.5-36.5); Mean Corpuscular Volume 93 fL (80-100); Mean Platelet Volume 10.6 fL (9.1-12.4); NEUTROPHILS ABSOLUTE AUTO 6.17 K/mm3 (1.96-9.15); NEUTROPHILS PERCENT AUTO 66 % (41-73); Platelet Count 307 K/mm3 (150-400); RDW Coefficient Variation 16.6 % (11.7-14.2); RDW Standard Deviation 56.1 fL (35.1-46.3); Red Blood Cell Count 3.37 M/mm3 (3.80-5.20); White Blood Cell Count 9.39 K/mm3 (4.00-11.30)
--- NOTE | 2022-05-11 05:35 | NUR ---
SUMMARY: PATIENT AOX2-3. PLEASANT AND COOPERATIVE WITH ALL CARE. BP SLIGHTLY ELEVATED AT SHIFT CHANGE. ORAL MEDS PROVIDED AND IT RETURNED WNL. PATIENT ON 2L NC. HAS A NON PRODUCTIVE COUGH. CALL LIGHT IN REACH, BED ALARM ON.
[2022-05-11 05:38] LABS: Bun/Creatinine Ratio 26.5 (12.0-20.0); Calcium, Blood 8.5 mg/dL (8.5-10.1); Creatinine, Blood 1.17 mg/dL (0.40-1.00); Potassium, Blood 3.9 mmol/L (3.5-5.5)
--- NOTE | 2022-05-11 19:11 | NUR ---
SHIFT SUMMARY: NURSING ADMINISTRATOR REPORTED PT'S HR ESCALATED AND SUSTAINED 125-135 AND HAD ONCE TOUCHED 170, AFIB; NOTIFIED DR. NEUMANN, RECEIVED ORDER FOR IV LOPRESSOR. GAVE ONE DOSE, AND AN HOUR LATER RHYTHM CONVERTED TO SINUS RHYTHM WITH RATE IN THE 80'S. PATIENT SLEPT SOUNDLY THROUGHOUT AND DENIED CHEST DISCOMFORT WHEN SHE WOKE UP. REQUESTED URINARY CATHETER, BUT ATTENDS PLACED INSTEAD. ON O2 @ 3 L/MIN, HAS WEAK STUDENT RECRUITER COUGH. SLEPT MOST OF THE DAY, BUT WAS MUCH MORE ALERT AT DINNER TIME. ATE VERY LITTLE.
[2022-05-12 05:29] LABS: Albumin, Blood 2.2 g/dL (3.4-5.0); Anion Gap 4 mmol/L (6-16); Blood Urea Nitrogen 34 mg/dL (8-24); Bun/Creatinine Ratio 26.2 (12.0-20.0); CO2, Blood 22 mmol/L (21-32); Calcium, Blood 8.4 mg/dL (8.5-10.1); Chloride, Blood 115 mmol/L (98-108); Glomerular Filtration Rate 42 (60-); Glucose, Blood 123 mg/dL (70-99); Phosphorus, Blood 2.4 mg/dL (2.5-4.9); Potassium, Blood 3.8 mmol/L (3.5-5.5); Sodium, Blood 141 mmol/L (136-145)
--- NOTE | 2022-05-12 06:28 | NUR ---
SUMMARY: PATIENT AOX2-3. PLEASANT AND COOPERATIVE WITH ALL CARE. PATIENT ON 2L NC. HAS A NON PRODUCTIVE COUGH. TYLENOL PEOPLESOFT PROGRAMMER PRN. PATIENT 1X ASSIST TO BEDSIDE COMMODE. CALL LIGHT IN REACH, BED ALARM ON.
--- NOTE | 2022-05-12 08:00 | NUR ---
pt laying in bed wakes easily, a/ox2, pleasant and cooperative with care, follows commands well, denies pain, states she's feeling ok, lungs are clear t/o, currently on 2 liters 02 via n/c, resp even and unlabored, occ weak nonproductive cough, hrirr, tele in place running afib per monitor, see strip, no edema noted, ppp+1, cap refill <3sec, vs stable, afebrile, piv site is clear and patent, btx4, abd flat soft nontender, voids via bsc, briefs also in place for stress incont, one person assist, skin c/w/d, fabián, jhoana, cate, call light in reach.
[2022-05-12 12:43] LABS: Influenza A, PCR NEGATIVE (NEGATIVE); Influenza B, PCR NEGATIVE (NEGATIVE); Resp Syncytial Virus, PCR NEGATIVE (NEGATIVE); SARS-Cov-2 (COVID-19) PCR, MMC NEGATIVE (NEGATIVE)
[2022-05-12] MEDS ORDERED: Q-Tussin100 MG/5 M PO (12:51)
--- NOTE | 2022-05-12 16:51 | NUR ---
Pt is transfering back to [facility], her ride is here with wheelchair transport, iv removed intact, left via wheelchair with her belongings, report called to [facility].
== END 2022-05-12 16:39 | DRG 865 ==
LOC: ER 09:28 → MEDS 12:46 → ER 13:56 → MEDS 14:40
PROVIDERS: Student in an Organized Health Care Education/Training Program; ADMIT Family Medicine
DX: B34.8 Other viral infections of unspecified site (principal); E43 Unspecified severe protein-calorie malnutrition; J96.01 Acute respiratory failure with hypoxia; Z68.1 Body mass index [BMI] 19.9 or less, adult; Z20.822 Contact with and (suspected) exposure to COVID-19; I12.9 Hypertensive chronic kidney disease with stage 1 through stage 4 chronic kidney disease, or unspecified chronic kidney disease; N18.30 Chronic kidney disease, stage 3 unspecified; I48.0 Paroxysmal atrial fibrillation; J45.909 Unspecified asthma, uncomplicated; D63.1 Anemia in chronic kidney disease; F03.90 Unspecified dementia, unspecified severity, without behavioral disturbance, psychotic disturbance, mood disturbance, and anxiety; I73.9 Peripheral vascular disease, unspecified; E78.00 Pure hypercholesterolemia, unspecified; Z87.442 Personal history of urinary calculi; I25.2 Old myocardial infarction; Z88.0 Allergy status to penicillin; Z88.1 Allergy status to other antibiotic agents; Z88.2 Allergy status to sulfonamides; Z88.8 Allergy status to other drugs, medicaments and biological substances; Z79.01 Long term (current) use of anticoagulants; Z79.899 Other long term (current) drug therapy
CPT/HCPCS: 0202U; 0241U; 36415; 71045; 80048; 80069; 83605; 83735; 84145; 85025; 94640; 94664; 94760; 96365; 99285-25; A9270; J0360; J1956; J7030

== ENCOUNTER 2022-10-05 16:50 | Emergency (ER) | payer OTHER ==
[~2022-10-05] VITALS: Ht 152.4 cm; Wt 35.4 kg
[~2022-10-05 16:50] MED LIST changes: +DORZOLAMIDE-TIM10 ML BOTHEYES; +LATANOPROST2.5 M3 BOTHEYES; +Q-Tussin100 MG/5 M PO
[2022-10-05 19:00] VITALS: BP 171/122
[2022-10-05 21:11] LABS: BASOPHILS ABSOLUTE AUTO 0.01 K/mm3 (0.00-0.23); BASOPHILS PERCENT AUTO 0 % (0-2); EOSINOPHILS ABSOLUTE AUTO 0.13 K/mm3 (0.00-0.68); EOSINOPHILS PERCENT AUTO 1 % (0-6); Hematocrit 31.2 % (33.0-51.0); IMMATURE GRAN ABSOLUTE AUTO 0.02 K/mm3 (0.00-0.10); IMMATURE GRAN PERCENT AUTO 0 % (0-1); LYMPHOCYTES ABSOLUTE AUTO 2.77 K/mm3 (0.84-5.20); LYMPHOCYTES PERCENT AUTO 29 % (21-46); MONOCYTES ABSOLUTE AUTO 1.04 K/mm3 (0.16-1.47); MONOCYTES PERCENT AUTO 11 % (4-13); Mean Corpuscular HGB 28.3 pg (26.0-34.0); Mean Corpuscular HGB Conc 32.1 g/dL (31.5-36.5); Mean Corpuscular Volume 88 fL (80-100); Mean Platelet Volume 11.2 fL (9.1-12.4); NEUTROPHILS ABSOLUTE AUTO 5.64 K/mm3 (1.96-9.15); NEUTROPHILS PERCENT AUTO 59 % (41-73); NRBC ABSOLUTE 0.03 K/mm3 (0.00-0.02); NRBC Auto 0.3 /100 WBC (0.0-0.2); Platelet Count 284 K/mm3 (150-400); RDW Coefficient Variation 20.8 % (11.7-14.2); RDW Standard Deviation 65.8 fL (35.1-46.3); Red Blood Cell Count 3.53 M/mm3 (3.80-5.20); White Blood Cell Count 9.61 K/mm3 (4.00-11.30)
[2022-10-05 21:14] LABS: Source, Urine Straight Cath
[2022-10-05 21:17] LABS: Appearance, Urine Clear (Clear); Bilirubin, Urine Neg (Neg); Blood, Urine 3+ (Neg); Color, Urine Yellow (P-Yellow); Glucose Qualitative, Urine Neg (Neg); Ketones, Urine Neg (Neg); Leukocyte Esterase, Urine Neg (Neg); Nitrite, Urine Neg (Neg); Protein, Urine 2+ (Neg); Urobilinogen, Urine NORM (Normal)
[2022-10-05 21:25] LABS: Bun/Creatinine Ratio 25.6 (12.0-20.0); Calcium, Blood 8.6 mg/dL (8.5-10.1); Creatinine, Blood 1.25 mg/dL (0.40-1.00); Potassium, Blood 3.5 mmol/L (3.5-5.5)
[2022-10-05 21:25] LABS: Bacteria Few /hpf; Squamous Epithelial Cells Not Seen /hpf (Few); White Blood Cells, Urine 0-2 /hpf (0-5)
[2022-10-05 21:26] LABS: Amorphous Light (0-Heavy)
== END 2022-10-05 22:11 | disposition home or self-care (01) ==
LOC: ER 16:50
PROVIDERS: Student in an Organized Health Care Education/Training Program
DX: R41.82 Altered mental status, unspecified (principal); R34 Anuria and oliguria; F03.90 Unspecified dementia, unspecified severity, without behavioral disturbance, psychotic disturbance, mood disturbance, and anxiety; Z88.0 Allergy status to penicillin; Z88.2 Allergy status to sulfonamides; Z88.8 Allergy status to other drugs, medicaments and biological substances; Z88.1 Allergy status to other antibiotic agents; Z88.5 Allergy status to narcotic agent; Z79.899 Other long term (current) drug therapy; J45.909 Unspecified asthma, uncomplicated; I10 Essential (primary) hypertension; E78.00 Pure hypercholesterolemia, unspecified; I25.2 Old myocardial infarction; I48.91 Unspecified atrial fibrillation
CPT/HCPCS: 51701; 51798; 80048; 81001; 85025; 99285

== ENCOUNTER 2022-10-15 14:44 | Emergency (ER) | payer OTHER ==
[~2022-10-15] VITALS: Ht 154.9 cm; Wt 40.8 kg
[2022-10-15 16:02] LABS: Source, Urine Straight Cath
[2022-10-15 16:15] LABS: Appearance, Urine Clear (Clear); Bilirubin, Urine Neg (Neg); Blood, Urine Neg (Neg); Color, Urine Yellow (P-Yellow); Glucose Qualitative, Urine Neg (Neg); Ketones, Urine Neg (Neg); Leukocyte Esterase, Urine Neg (Neg); Nitrite, Urine Neg (Neg); Protein, Urine 1+ (Neg); Urobilinogen, Urine NORM (Normal)
[2022-10-15 16:21] LABS: Hematocrit 36.6 % (33.0-51.0); Hemoglobin 11.5 g/dL (11.5-16.0); Mean Corpuscular HGB 27.8 pg (26.0-34.0); Mean Corpuscular HGB Conc 31.4 g/dL (31.5-36.5); Mean Corpuscular Volume 89 fL (80-100); Mean Platelet Volume 10.7 fL (9.1-12.4); Platelet Count 426 K/mm3 (150-400); RDW Coefficient Variation 19.2 % (11.7-14.2); RDW Standard Deviation 61.1 fL (35.1-46.3); Red Blood Cell Count 4.13 M/mm3 (3.80-5.20); White Blood Cell Count 10.34 K/mm3 (4.00-11.30)
[2022-10-15 16:40] LABS: Albumin, Blood 2.9 g/dL (3.4-5.0); Albumin/Globulin Ratio 0.9 (0.8-1.8); Bilirubin, Total 0.4 mg/dL (0.1-1.0); Bun/Creatinine Ratio 21.9 (12.0-20.0); Calcium, Blood 8.9 mg/dL (8.5-10.1); Creatinine, Blood 1.28 mg/dL (0.40-1.00); Globulin, Blood 3.4 g/dL (2.2-4.0); Potassium, Blood 4.5 mmol/L (3.5-5.5); Total Protein, Blood 6.3 g/dL (6.4-8.2)
[2022-10-15 18:15] VITALS: BP 157/91
[2022-10-15 18:34] LABS: BAND PERCENT MAN 1 % (0-8); BASOPHILS PERCENT MAN 0 % (0-2); EOSINOPHILS PERCENT MAN 2 % (0-6); LYMPHOCYTES PERCENT MAN 59 % (21-46); MONOCYTES ABSOLUTE MAN 0.72 K/mm3 (0.16-1.47); MONOCYTES PERCENT MAN 7 % (4-13); SEG NEUTROPHILS PERCENT MAN 30 % (41-73); TOTAL CELLS COUNTED 100
[2022-10-15 18:37] LABS: LYMPHOCYTES % ATYPICAL MANUAL 1 % (0-0)
== END 2022-10-15 18:53 | disposition home or self-care (01) ==
LOC: ER 14:44
PROVIDERS: Emergency Medicine
DX: R45.1 Restlessness and agitation (principal); J45.909 Unspecified asthma, uncomplicated; I10 Essential (primary) hypertension; I25.2 Old myocardial infarction; F03.B0 Unspecified dementia, moderate, without behavioral disturbance, psychotic disturbance, mood disturbance, and anxiety
CPT/HCPCS: 80053; 85025; 99284

== ENCOUNTER 2022-10-16 07:09 | Inpatient (IN) | payer OTHER ==
[~2022-10-16] VITALS: Ht 144.8 cm; Wt 36.3 kg
[2022-10-16] VITALS (10 sets, daily range): BP systolic 146–199; BP diastolic 68–109
[2022-10-16 09:45] LABS: Hematocrit 36.5 % (33.0-51.0); Hemoglobin 11.6 g/dL (11.5-16.0); Mean Corpuscular HGB 27.6 pg (26.0-34.0); Mean Corpuscular HGB Conc 31.8 g/dL (31.5-36.5); Mean Corpuscular Volume 87 fL (80-100); Mean Platelet Volume 10.5 fL (9.1-12.4); Platelet Count 436 K/mm3 (150-400); RDW Coefficient Variation 18.8 % (11.7-14.2); RDW Standard Deviation 59.1 fL (35.1-46.3); Red Blood Cell Count 4.21 M/mm3 (3.80-5.20)
[2022-10-16 09:53] LABS: BASOPHILS ABSOLUTE AUTO 0.04 K/mm3 (0.00-0.23); BASOPHILS PERCENT AUTO 0 % (0-2); EOSINOPHILS ABSOLUTE AUTO 0.07 K/mm3 (0.00-0.68); EOSINOPHILS PERCENT AUTO 0 % (0-6); IMMATURE GRAN ABSOLUTE AUTO 0.06 K/mm3 (0.00-0.10); IMMATURE GRAN PERCENT AUTO 0 % (0-1); LYMPHOCYTES ABSOLUTE AUTO 5.62 K/mm3 (0.84-5.20); LYMPHOCYTES PERCENT AUTO 34 % (21-46); MONOCYTES ABSOLUTE AUTO 1.32 K/mm3 (0.16-1.47); MONOCYTES PERCENT AUTO 8 % (4-13); NEUTROPHILS ABSOLUTE AUTO 9.39 K/mm3 (1.96-9.15); NEUTROPHILS PERCENT AUTO 57 % (41-73)
[2022-10-16 10:00] LABS: Bun/Creatinine Ratio 22.6 (12.0-20.0); Calcium, Blood 9.2 mg/dL (8.5-10.1); Creatinine, Blood 1.24 mg/dL (0.40-1.00); Potassium, Blood 4.1 mmol/L (3.5-5.5)
[2022-10-16 10:03] LABS: Source, Urine Foley catheter
[2022-10-16 10:10] LABS: Appearance, Urine Clear (Clear); Bilirubin, Urine Neg (Neg); Blood, Urine Neg (Neg); Color, Urine Yellow (P-Yellow); Glucose Qualitative, Urine Neg (Neg); Ketones, Urine Neg (Neg); Leukocyte Esterase, Urine Neg (Neg); Nitrite, Urine Neg (Neg); Protein, Urine 1+ (Neg); Specific Gravity, Urine 1.025 (1.003-1.022); Urobilinogen, Urine NORM (Normal)
--- NOTE | 2022-10-16 11:44 | NUR ---
PT ARRIVED TO UNIT AT [facility] 1115. DURING TX PT STATED "JUST LEAVE ME ALONE AND LET ME ALREADY". PALLIATIVE CARE CONSULTED PER MD ORDER
[2022-10-17 04:09] VITALS: BP 171/63
[2022-10-17 04:12] VITALS: BP 141/88
[2022-10-17 04:14] LABS: BASOPHILS ABSOLUTE AUTO 0.04 K/mm3 (0.00-0.23); BASOPHILS PERCENT AUTO 0 % (0-2); EOSINOPHILS ABSOLUTE AUTO 0.01 K/mm3 (0.00-0.68); EOSINOPHILS PERCENT AUTO 0 % (0-6); Hematocrit 33.1 % (33.0-51.0); Hemoglobin 10.5 g/dL (11.5-16.0); IMMATURE GRAN ABSOLUTE AUTO 0.07 K/mm3 (0.00-0.10); IMMATURE GRAN PERCENT AUTO 0 % (0-1); LYMPHOCYTES ABSOLUTE AUTO 4.52 K/mm3 (0.84-5.20); LYMPHOCYTES PERCENT AUTO 29 % (21-46); MONOCYTES ABSOLUTE AUTO 1.81 K/mm3 (0.16-1.47); MONOCYTES PERCENT AUTO 12 % (4-13); Mean Corpuscular HGB 27.6 pg (26.0-34.0); Mean Corpuscular HGB Conc 31.7 g/dL (31.5-36.5); Mean Corpuscular Volume 87 fL (80-100); Mean Platelet Volume 11.2 fL (9.1-12.4); NEUTROPHILS ABSOLUTE AUTO 9.25 K/mm3 (1.96-9.15); NEUTROPHILS PERCENT AUTO 59 % (41-73); Platelet Count 355 K/mm3 (150-400); RDW Coefficient Variation 18.6 % (11.7-14.2); RDW Standard Deviation 58.3 fL (35.1-46.3)
--- NOTE | 2022-10-17 04:25 | NUR ---
NIKO SUMMARY PT FX R HIP R/T GROUND LEVEL FALL. HX OF DEMENTIA, NOT ORIENTED, SHE OFTEN CALLS OUT "I WANT TO GO HOME." PT EXPERIENCES EXTREME DISTRESS WHEN ATTEMPTING TO REPOSITION HER IN BED. THROUGHOUT THE NIGHT SHE LAID ON HER RIGHT SIDE, WITH LEGS CURLED IN TOWARD HER CHEST, UNABLE TO ASSESS FULL FLEXION/ ROTATION OF LOWER EXTREMITIES. PT DOES WIGGLE BILATERAL TOES. PT KEPT NPO SINCE MIDNIGHT, AWAITING SURGICAL CONSULT IN AM. MEDICATIONS GIVEN ONLY IV. BED ALARM ON, CALL LIGHT WITHIN REACH, WILL REPORT TO DAY NURSE.
[2022-10-17 04:37] LABS: Magnesium, Blood 1.8 mg/dL (1.6-2.4)
[2022-10-17 04:38] LABS: Albumin, Blood 2.7 g/dL (3.4-5.0); Anion Gap 11 mmol/L (6-16); Blood Urea Nitrogen 29 mg/dL (8-24); Bun/Creatinine Ratio 25.9 (12.0-20.0); CO2, Blood 19 mmol/L (21-32); Calcium, Blood 8.6 mg/dL (8.5-10.1); Chloride, Blood 113 mmol/L (98-108); Creatinine, Blood 1.12 mg/dL (0.40-1.00); Glomerular Filtration Rate 50 (60-); Glucose, Blood 140 mg/dL (70-99); Phosphorus, Blood 3.1 mg/dL (2.5-4.9); Potassium, Blood 4.5 mmol/L (3.5-5.5); Sodium, Blood 143 mmol/L (136-145)
[2022-10-17 07:21] VITALS: BP 191/99
--- NOTE | 2022-10-17 07:44 | NUR ---
SPOKE WITH PT'S ALBERT MARTINO VIA TELEPHONE. SALENA VERBALIZED THAT SHE DOES NOT WANT THE PT TO HAVE SURGERY AT THIS TIME. SHE PLANS TO COME IN TO SEE THE PT TODAY, BUT DID NOT HAVE A SPECIFIC TIME. SHE STATED THAT SHE IS AVAILABLE BY TELEPHONE FOR COMMUNICATION RELATED TO THE TREATMENT PLAN. PHONE NUMBER [phone].
--- NOTE | 2022-10-17 07:50 | NUR ---
NOTIFIED DR. TURK OF POA DECISION TO NOT MOVE FORWARD WITH SURGERY FOR THE PT. DR. TURK VERBALIZED AN UNDERSTANDING.
[2022-10-17 08:28] VITALS: BP 162/70
--- NOTE | 2022-10-17 11:23 | NUR ---
SALENA PRICE IS HERE AND AT PT BEDSIDE. SPOKE WITH HER ABOUT PT STATUS. SALENA VERBALIZED SHE IS WANTING TO KNOW MORE ABOUT HOSPICE AND DISCHARGE PLANNING AT THIS TIME. REFERRED TO LARON IN CARE MANAGEMENT WHO IS AT THE BEDSIDE AT THIS TIME WELL.
[2022-10-17 14:36] VITALS: BP 180/62
--- NOTE | 2022-10-17 15:01 | NUR ---
DISCHARGE PT DISCHARGED TO [facility] AND TRANSPORTED BY AMBULANCE. DISCHARGE PACKET SENT WITH PARAMEDICS. IV DC'D. PT LEFT WITH PERSONAL BELONGINGS. REPORT CALLED TO ALEN AT [facility]
== END 2022-10-17 14:54 | disposition home or self-care (01) | DRG 536 ==
LOC: ER 07:09 → MEDS 09:55 → SURS 09:55
PROVIDERS: Emergency Medicine; ADMIT Internal Medicine
PROC: 0T9B70Z Drainage of Bladder with Drainage Device, Via Natural or Artificial Opening (ICD-10-PCS; principal; 2022-10-16)
DX: S72.142A Displaced intertrochanteric fracture of left femur, initial encounter for closed fracture (principal); R64 Cachexia; Z68.1 Body mass index [BMI] 19.9 or less, adult; J45.909 Unspecified asthma, uncomplicated; E78.00 Pure hypercholesterolemia, unspecified; I48.91 Unspecified atrial fibrillation; I73.9 Peripheral vascular disease, unspecified; I12.9 Hypertensive chronic kidney disease with stage 1 through stage 4 chronic kidney disease, or unspecified chronic kidney disease; N18.30 Chronic kidney disease, stage 3 unspecified; E78.5 Hyperlipidemia, unspecified; E03.9 Hypothyroidism, unspecified; R54 Age-related physical debility; M40.209 Unspecified kyphosis, site unspecified; G30.9 Alzheimer's disease, unspecified; F02.C0 Dementia in other diseases classified elsewhere, severe, without behavioral disturbance, psychotic disturbance, mood disturbance, and anxiety; K21.9 Gastro-esophageal reflux disease without esophagitis; M81.0 Age-related osteoporosis without current pathological fracture; F41.1 Generalized anxiety disorder; I07.1 Rheumatic tricuspid insufficiency; W18.39XA Other fall on same level, initial encounter; Y92.002 Bathroom of unspecified non-institutional (private) residence as the place of occurrence of the external cause; I25.2 Old myocardial infarction; Z87.442 Personal history of urinary calculi; Z98.890 Other specified postprocedural states; Z89.422 Acquired absence of other left toe(s); Z88.1 Allergy status to other antibiotic agents; Z88.5 Allergy status to narcotic agent; Z88.0 Allergy status to penicillin; Z88.8 Allergy status to other drugs, medicaments and biological substances; Z88.2 Allergy status to sulfonamides; Z88.6 Allergy status to analgesic agent; Z79.899 Other long term (current) drug therapy; Z79.01 Long term (current) use of anticoagulants
CPT/HCPCS: 36415; 51702; 71045; 72192; 73502; 80048; 80069; 83735; 85025; 94760; 96374; 99285-25; A9270; J0360; J1630; J3010; J7030